=== PATIENT | male | born 1975 | race Caucasian/White ===

== ENCOUNTER → 2020-09-18 10:55 | Outpatient (CLI) | payer OTHER, SELFPAY ==
[2020-09-18 12:56] LABS: Microalbumin:Creatinine Ratio 50.2 mg/g CRE (<30 mg/g CRE)
[2020-09-18 12:58] LABS: Hemoglobin A1c 9.3 % (3.8-5.6)
[2020-09-18 13:16] LABS: ALB/GLOB Ratio 1.1 RATIO (0.9-2.4); AST(SGOT) 41 U/L (15-37); Alanine Aminotransfer ALT/SGPT 81 U/L (16-61); Albumin, Serum 4.1 g/dL (3.2-5.0); Alkaline Phosphatase 92 U/L (45-117); Anion Gap 10 (5-15); BUN 14 mg/dL (7-18); BUN/Creat Ratio 17.9 RATIO (10-20); Calcium,Total 9.9 mg/dL (8.5-10.1); Chloride 97 mmol/L (98-107); Cholesterol 150 mg/dL (200); Creatinine, Serum 0.78 mg/dL (0.70-1.30); EST Glomerular Filtration Rate 115 mL/min (>60); Est Glom Filt Rate - Afr Amer 139 mL/min (>60); Globulin 3.9 g/dL (2.2-4.2); Glucose 247 mg/dL (74-106); High Density Lipoprotein 28 mg/dL; Sodium Level 134 mmol/L (136-145); Triglycerides 720 mg/dL
== END ==
PROVIDERS: Visit Provider Family Medicine
DX: E11.9 Type 2 diabetes mellitus without complications (principal); I10 Essential (primary) hypertension
CPT/HCPCS: 36415; 80053; 80061; 82043; 82570; 83036

== ENCOUNTER → 2020-10-10 16:37 | Outpatient (CLI) | payer OTHER, SELFPAY | PROVIDERS: PCP Family Medicine; Visit Provider Family Medicine | DX: J06.9 Acute upper respiratory infection, unspecified (principal) | CPT/HCPCS: 87635; U0003 ==

== ENCOUNTER → 2021-09-24 18:11 | Outpatient (CLI) | payer OTHER, SELFPAY ==
[2021-09-24 18:14] LABS: Bacteria 0 SEEN /hpf (None Seen); Mucous, Urine 0 SEEN /hpf (<or=2+); Red Blood Cells-Urine 0 SEEN /hpf (0-5); Squamous Epithelial Cells - UA 0 SEEN /hpf (0-5); White Blood Cells 0 SEEN /hpf (0-5)
[2021-09-24 19:30] LABS: Color, Urine Yellow (Yellow); Glucose, Dipstick Normal (Normal); Ketone-Dipstick Negative (Negative); Leukocyte Esterase-Dipstick Negative /ul (Negative); Nitrite-Dipstick Negative (Negative); Occult Blood-Urine Negative /ul (Negative); Protein-Dipstick Negative (Negative); Urine Bilirubin Dipstick Negative (Negative); Urine Clarity Clear (Clear); Urine Urobilinogen Normal (Normal); Urine pH 6.5 (5.0 - 8.0)
== END ==
PROVIDERS: PCP Family Medicine; Referring Provider Family Medicine; Visit Provider Family Medicine
DX: R30.0 Dysuria (principal)
CPT/HCPCS: 81001; 87086; 87088

== ENCOUNTER 2021-11-12 16:48 | Outpatient (CLI) | payer OTHER, SELFPAY ==
--- NOTE | 2021-11-12 16:51 | RAD_ITS ---
STUDY: X-RAY - RIGHT FOOT CLINICAL: Male, 46 years old. Right foot pain TECHNIQUE: 3 view(s) of the foot. COMPARISON: None. FINDINGS: Normal talus, calcaneus, and tarsal bones. Normal visualized subtalar, talonavicular, calcaneocuboid, tarsal and tarsometatarsal articulations. Normal metatarsi. Normal metatarsophalangeal joint of the great toe. Normal tibial and fibular sesamoid bones. Normal interphalangeal joint of the great toe. Normal phalanges of the great toe. Normal second through fifth metatarsophalangeal joints. Normal interphalangeal joints and phalanges of the lesser toes. The soft tissue structures are unremarkable. RAD/Foot min 3 Views IMPRESSION: Normal x-ray examination of the foot. Electronically Signed: Victoriano Tineo MD at 2:50 EST Tel , Service support ,
== END 2021-11-12 23:59 | disposition short-term general hospital (02) ==
PROVIDERS: PCP Family Medicine; Referring Provider Family Medicine; Visit Provider Family Medicine
DX: M77.41 Metatarsalgia, right foot (principal)
CPT/HCPCS: 73630

== ENCOUNTER 2022-03-07 12:21 | Observation (INO) | payer OTHER, SELFPAY ==
[2022-03-07] VITALS (10 sets, daily range): BP systolic 120–148; BP diastolic 71–98; PULSE 79–169; RESP 12–18; TEMP 36.1–37.1; O2SAT 95–98; BMI 36.2; BMI 36.4
--- NOTE | 2022-03-07 13:34 | RAD_ITS ---
STUDY: X-RAY CHEST REASON FOR EXAM: Male, 46 years old. Chest pain TECHNIQUE: Single AP portable view of the chest. COMPARISON: None. FINDINGS: EKG electrodes are seen. The lungs are clear and expanded. There is no demonstrated pleural abnormality. Normal size heart. Normal mediastinum and jose. Normal visualized pulmonary arteries. Normal visualized aortic arch and descending thoracic aorta. Normal visualized thoracic spine. Normal visualized ribs, clavicles, and shoulders. There is no demonstrated abnormality of the visualized soft tissue structures of the upper abdomen. RAD/Chest 1 View (Portable) IMPRESSION: Normal x-ray examination of the chest. Electronically Signed: Omid Hall MD at 15:00 EDT ,
--- NOTE | 2022-03-07 13:54 | EKG12_ITS ---
Test Reason : PALPS Blood Pressure : / mmHG Vent. Rate : 146 BPM Atrial Rate : 141 BPM P-R Int : 000 ms QRS Dur : 084 ms QT Int : 282 ms P-R-T Axes : 000 058 048 degrees QTc Int : 439 ms Atrial fibrillation Abnormal ECG Confirmed by IRIS KIMBLE, JARED ([id number]), online editor BITA GARZA ([id number]) on 03/11/2022 1:32:52 PM Referred By: FRANKLIN/TWYLA Confirmed By:JARED SIMMONS MD
--- NOTE | 2022-03-07 13:59 | EDS_ITS ---
HPI <MIKE Braden - Last Filed: 03/07/22 15:54> History of Present Illness Chief Complaint: Palpitations Narrative Narrative: 46-year-old male with PMH of HTN, DM2 presents with palpitations. About 2 weeks ago he noticed a racing heart and saw his PCP who ordered an outpatient echo/stress. Intermittently since then he has had episodes of heart racing with this morning being the worst starting at 7 AM. It feels like his heart is beating fast and strong. There is no chest pain, shortness of breath, nausea vomiting or diaphoresis. He does note he has been a little more winded with going up stairs but attributed this to seasonal allergies. He has had a mild cough as well. No orthopnea or significant lower extremity edema. He denies cardiopulmonary history. He smokes about 1/2 PPD. PFSH <MIKE Braden - Last Filed: 03/07/22 15:54> PFSH Medical History Diabetes GERD (gastroesophageal reflux disease) Hypertension Sleep apnea Smoker Home Medications amlodipine 10 mg PO DAILY 03/07/22 [History Last Taken Unknown] atorvastatin 40 mg PO DAILY 03/07/22 [History Last Taken Unknown] dapagliflozin [Farxiga] 10 mg PO DAILY 03/07/22 [History Last Taken Unknown] glipizide 10 mg PO DAILY 03/07/22 [History Last Taken Unknown] losartan-hydrochlorothiazide 1 tab PO DAILY 03/07/22 [History Last Taken Unknown] metformin 1,000 mg PO BID 03/07/22 [History Last Taken Unknown] pioglitazone 30 mg PO DAILY 03/07/22 [History Last Taken Unknown] Allergy/AdvReac Type Severity Reaction Status Date / Time No Known Allergies Allergy Verified 03/07/22 12:21 Social History Smoking Status: Current every day smoker tobacco type: cigarettes ROS <MIKE Braden - Last Filed: 03/07/22 15:54> ROS ED ROS Narrative Constitutional: Negative for fever, chills, malaise. Eyes: Negative for visual change. ENT: Negative for sore throat, ear pain, rhinorrhea. CVS: Positive for palpitations. Negative for chest pain, syncope. Respiratory: Positive for dyspnea on exertion. Negative for shortness of breath, cough, orthopnea. GI: Negative for abdominal pain, nausea, vomiting, diarrhea, constipation, melena, hematochezia. : Negative for dysuria, hematuria or frequency. Neuro: Negative for headache, motor/sensory dysfunction. Skin: Negative for rash, abscess, or wound. Musc: Negative for joint pain, swelling, trauma. Heme: Negative for easy bruising, bleeding, lymphadenopathy. EXAM <MIKE Braden - Last Filed: 03/07/22 15:54> Physical Exam Narrative Exam Narrative: CONST: Patient sitting in no acute distress. EYES: Normal inspection. ENT: Normal inspection, moist mucous membranes. NECK: Normal inspection. RESP: No respiratory distress, slight expiratory wheeze. CVS: Tachycardic irregularly irregular rhythm, no murmur, no gallop. ABD: Soft and nontender, no guarding or rebound. Back: Normal inspection. SKIN: Color normal, no rash, warm, dry, intact. EXTREMITIES: Normal appearance, no pedal edema. No calf tenderness. NEURO: Oriented x4. PSYCH: Normal affect. Const Vital Signs: 03/07/22 12:22 03/07/22 13:31 03/07/22 13:43 Temperature 97.8 F Temperature Source Temporal Pulse Rate 82 169 H Respiratory Rate 16 Respiratory Effort Normal Non-Labored Normal Non-Labored Respiratory Pattern Normal Blood Pressure 148/89 H 129/88 H Blood Pressure Mean 108 101 Pulse Ox 98 Oxygen Delivery Method Room Air 03/07/22 14:55 03/07/22 15:23 Temperature Temperature Source Pulse Rate 104 H 130 H Respiratory Rate 13 13 Respiratory Effort Respiratory Pattern Blood Pressure 133/75 H 129/78 H Blood Pressure Mean 94 95 Pulse Ox 95 Oxygen Delivery Method Room Air <Dr. Justus Youssef DO - Last Filed: 03/07/22 15:44> Physical Exam Const Vital Signs: 03/07/22 12:22 03/07/22 13:31 03/07/22 13:43 Temperature 97.8 F Temperature Source Temporal Pulse Rate 82 169 H Respiratory Rate 16 Respiratory Effort Normal Non-Labored Normal Non-Labored Respiratory Pattern Normal Blood Pressure 148/89 H 129/88 H Blood Pressure Mean 108 101 Pulse Ox 98 Oxygen Delivery Method Room Air 03/07/22 14:55 03/07/22 15:23 Temperature Temperature Source Pulse Rate 104 H 130 H Respiratory Rate 13 13 Respiratory Effort Respiratory Pattern Blood Pressure 133/75 H 129/78 H Blood Pressure Mean 94 95 Pulse Ox 95 Oxygen Delivery Method Room Air [facility] <MIKE Braden - Last Filed: 03/07/22 15:54> [facility] Narrative Medical decision making narrative: Patient has had intermittent palpitations and presents in A. fib RVR in the 160s. BP 130s/80s. No hypoxia. EKG confirms new onset A. fib with no acute ischemia. Troponin is 13. Basic labs are unremarkable and TSH and magnesium are within normal limits. Patient was given a Cardizem bolus of 10 mg and a second bolus at 20 mg with improvement in heart rate from 160s to 130s. I consulted cardiology and Dr. Trevino who recommended starting a Cardizem drip at 5 mg an hour. Case was discussed with the hospitalist who was agreeable with this plan. Diagnoses 1. Palpitations 2. A. fib RVR Lab Data Labs: Laboratory Results - last 24 hr 03/07/22 03/07/22 03/07/22 13:35 13:35 13:35 WBC 9.5 RBC 5.29 Hgb 15.6 Hct 44.5 MCV 84.1 MCH 29.5 MCHC 35.1 RDW Std Deviation 36.0 RDW Coeff of Lala 11.9 Plt Count 368 MPV 9.4 Immature Gran % (Auto) 0.400 Neut % (Auto) 65.2 Lymph % (Auto) 22.5 [place] % (Auto) 9.7 Eos % (Auto) 1.9 Baso % (Auto) 0.3 Absolute Neuts (auto) 6.2 Absolute Lymphs (auto) 2.14 Nucleated RBC % 0 Sodium 136 Potassium 4.0 Chloride 103 Carbon Dioxide 25.0 Anion Gap 8 BUN 12 Creatinine 0.71 Estim Creat Clear Calc 139.94 Est GFR (MDRD) Af Amer 153 Est GFR (MDRD) Non-Af 127 BUN/Creatinine Ratio 16.9 Glucose 160 H Calcium 9.8 Magnesium Troponin I High Sens 13 B-Natriuretic Peptide 124.8 H TSH 03/07/22 13:35 WBC RBC Hgb Hct MCV MCH MCHC RDW Std Deviation RDW Coeff of Lala Plt Count MPV Immature Gran % (Auto) Neut % (Auto) Lymph % (Auto) [place] % (Auto) Eos % (Auto) Baso % (Auto) Absolute Neuts (auto) Absolute Lymphs (auto) Nucleated RBC % Sodium Potassium Chloride Carbon Dioxide Anion Gap BUN Creatinine Estim Creat Clear Calc Est GFR (MDRD) Af Amer Est GFR (MDRD) Non-Af BUN/Creatinine Ratio Glucose Calcium Magnesium 1.6 Troponin I High Sens B-Natriuretic Peptide TSH 2.05 Radiography Chest X-Ray - ED: 1 View, Read by ED Physician, Read by Radiologist, Unchanged, Heart, Lungs, Mediastinum, Bony Structures and No Acute Disease Diagnostic Testing: Clinical Impression(s) from Imaging Studies Chest X-Ray 03/07/22 13:34 IMPRESSION: Normal x-ray examination of the chest. Electronically Signed: Omid Hall MD at 15:00 EDT , ED attending interpretation of 1 view chest shows normal heart size, no acute infiltrate edema or effusion EKG Initial EKG: Attestation: I personally reviewed and interpreted this EKG as follows: Interpretation: No Acute Injury Pattern and Atrial Fibrillation Comments: A. fib RVR 146 bpm, no acute ischemia <Dr. Justus Youssef DO - Last Filed: 03/07/22 15:44> MDM MDM Narrative Medical decision making narrative: I performed a history and physical examination of the patient and discussed management plan with the physician congressional assistant. I reviewed the physician congressional assistant's note and agree with the documented findings and plan of care. 46-year-old male has been experiencing palpitations. He saw his primary care physician and then again in follow-up today. He was noted to be in A. fib in the office today. He has not had any syncope or evidence of heart failure. He does note that he is concerned he may have sleep apnea. Plan is admission into the hospital. Case was discussed with cardiology. Justus Youssef DO, MS Lab Data Labs: Laboratory Results - last 24 hr 03/07/22 03/07/22 03/07/22 13:35 13:35 13:35 WBC 9.5 RBC 5.29 Hgb 15.6 Hct 44.5 MCV 84.1 MCH 29.5 MCHC 35.1 RDW Std Deviation 36.0 RDW Coeff of Lala 11.9 Plt Count 368 MPV 9.4 Immature Gran % (Auto) 0.400 Neut % (Auto) 65.2 Lymph % (Auto) 22.5 [place] % (Auto) 9.7 Eos % (Auto) 1.9 Baso % (Auto) 0.3 Absolute Neuts (auto) 6.2 Absolute Lymphs (auto) 2.14 Nucleated RBC % 0 Sodium 136 Potassium 4.0 Chloride 103 Carbon Dioxide 25.0 Anion Gap 8 BUN 12 Creatinine 0.71 Estim Creat Clear Calc 139.94 Est GFR (MDRD) Af Amer 153 Est GFR (MDRD) Non-Af 127 BUN/Creatinine Ratio 16.9 Glucose 160 H Calcium 9.8 Magnesium Troponin I High Sens 13 B-Natriuretic Peptide 124.8 H TSH 03/07/22 13:35 WBC RBC Hgb Hct MCV MCH MCHC RDW Std Deviation RDW Coeff of Lala Plt Count MPV Immature Gran % (Auto) Neut % (Auto) Lymph % (Auto) [place] % (Auto) Eos % (Auto) Baso % (Auto) Absolute Neuts (auto) Absolute Lymphs (auto) Nucleated RBC % Sodium Potassium Chloride Carbon Dioxide Anion Gap BUN Creatinine Estim Creat Clear Calc Est GFR (MDRD) Af Amer Est GFR (MDRD) Non-Af BUN/Creatinine Ratio Glucose Calcium Magnesium 1.6 Troponin I High Sens B-Natriuretic Peptide TSH 2.05 Radiography Diagnostic Testing: Clinical Impression(s) from Imaging Studies Chest X-Ray 03/07/22 13:34 IMPRESSION: Normal x-ray examination of the chest. Electronically Signed: Omid Hall MD at 15:00 EDT , Discharge Plan Dx/Rx/DC Orders Clinical Impression: Atrial fibrillation, new onset, Diabetes Disposition Disposition: Acute Care Hospital [facility]
[2022-03-07 14:03] LABS: Absolute Lymphocyte Count 2.14 X10^3/uL (0.83-4.51); Absolute Neutrophil Count 6.2 X10^3/uL (2.0-7.7); Basophil# 0.03 X10^3/uL; Basophil% 0.3 % (0-1); Eosinophil# 0.18 X10^3/uL; Eosinophils% 1.9 % (0-5); Hematocrit 44.5 % (40-54); Hemoglobin 15.6 g/dL (13.0-16.5); Lymphocyte # 2.14 X10^3/ul (0.83-4.51); Lymphocyte % 22.5 % (19-41); Mean Corp Hgb Conc 35.1 g/dL (32-36); Mean Corpuscular Hgb 29.5 pg (27.0-32.0); Mean Corpuscular Volume 84.1 fL (80-94); Mean Platelet Vol. 9.4 fl (6.2-12.0); Monocyte# 0.92 X10^3/uL; Monocyte% 9.7 % (0-10); NRBC Flagged by Analyzer 0 % (0-5); Neutrophil # 6.21 X10^3/uL (2.7-7.7); Neutrophil % 65.2 % (47-70); Platelet Count 368 K/mm3 (150-450); RBC Distribution Width CV 11.9 % (11.6-14.6); Red Blood Count 5.29 M/mm3 (4.6-6.2); White Blood Count 9.5 K/mm3 (4.4-11.0)
[2022-03-07] MEDS: dilTIAZem 25 MG/5 ML Vial 10 MG IV BOLUS (14:03)
[2022-03-07] MEDS: Aspirin 81 MG TAB.CHEW 324 MG PO (14:03)
[2022-03-07 14:25] LABS: BNP,B-Type NATRIURETIC PEPTIDE 124.8 pg/mL (0-100)
[2022-03-07 14:29] LABS: Anion Gap 8 (5-15); BUN 12 mg/dL (7-18); BUN/Creat Ratio 16.9 RATIO (10-20); Calcium,Total 9.8 mg/dL (8.5-10.1); Chloride 103 mmol/L (98-107); Creatinine, Serum 0.71 mg/dL (0.70-1.30); EST Glomerular Filtration Rate 127 mL/min (>60); Est Glom Filt Rate - Afr Amer 153 mL/min (>60); Estimated Creatinine Clearance 139.94 ml/min; Glucose 160 mg/dL (74-106); Sodium Level 136 mmol/L (136-145); Troponin-I HS (w/2H Reflex) 13 pg/mL (3.0-78.0)
[2022-03-07] MEDS: dilTIAZem 25 MG/5 ML Vial 20 MG IV BOLUS (14:36)
[2022-03-07 14:43] LABS: Magnesium 1.6 mg/dL (1.6-2.6); Thyroid Stim Hormone (TSH) 2.05 uIU/mL (0.358-3.74)
--- NOTE | 2022-03-07 16:11 | HP.PCM.HOS_ITS ---
Documented by User: Frances Hope NP, FOOD MANAGER-C 03/07/22 16:27 HPI - General HPI Narrative RENY BEVERLY, is a 46 M who presents to the emergency room due to palpitations. He states this has been intermittent for the past week and a half however today was more persistent. He presented to his primary care provider who completed an EKG and patient was noted to have atrial fibrillation with RVR. He denies short ness of breath, chest pain. Denies other associated symptoms or complaints. Denies history of known A. fib. Denies history of known heart disease. Upon examination in the emergency room, patient converted to sinus rhythm. He states he was scheduled for outpatient sleep study for suspected IRINA as well as outpatient stress test due to his symptoms of palpitations and family history of heart disease. He reports a past medical history of hypertension, hyperlipidemia, type 2 diabetes mellitus, tobacco dependence, obesity. Patient states he has a history of heavy alcohol use however over the past eight months, has used very little alcohol. PFSH Medical History Diabetes GERD (gastroesophageal reflux disease) Hypertension Irregular heart beat Sleep apnea Smoker Home Medications amlodipine 10 mg PO DAILY 03/07/22 [History Last Taken 03/07/22] atorvastatin 40 mg PO DAILY 03/07/22 [History Last Taken 03/07/22] glipizide 10 mg PO DAILY 03/07/22 [History Last Taken 03/07/22] losartan-hydrochlorothiazide 1 tab PO DAILY 03/07/22 [History Last Taken 03/07/22] metformin 1,000 mg PO BID 03/07/22 [History Last Taken 03/07/22] pioglitazone 30 mg PO DAILY 03/07/22 [History Last Taken 03/07/22] Allergy/AdvReac Type Severity Reaction Status Date / Time No Known Allergies Allergy Verified 03/07/22 12:21 Family History Father CAD (coronary artery disease) Mother Arthritis Surgical History Congenital hypertrophic pyloric stenosis Social History household members: family Smoking Status: Current every day smoker tobacco type: cigarettes alcohol intake: current alcohol intake frequency: a few times a month details: previous heavy alcohol use substance use type: does not use ROS Constitutional Constitutional: Denies change in weight, chills, fatigue, fever(s) or weakness Cardiovascular Cardiovascular: Reports palpitations; Denies chest pain, edema, lightheadedness or syncope Respiratory/Chest Respiratory/Chest: Denies cough, dyspnea, productive cough, shortness of breath at rest, shortness of breath with exertion or wheezing Gastrointestinal Gastrointestinal: Denies abdominal pain, constipation, diarrhea, nausea or vomiting Genitourinary Genitourinary: Denies burning urination, difficulty urinating, dysuria, hematuria, urinary frequency, urinary incontinence or urinary urgency Musculoskeletal Musculoskeletal: Denies back pain, joint pain or muscle weakness Integumentary Integumentary: Denies erythema, lesions, rash or wounds Neurologic Neurologic: Denies abnormal speech, confusion, dizziness, focal weakness, numbness, paresthesias, seizure-like activity or syncope Psychiatric Psychiatric: Denies anxiety or depression Hematologic/Lymphatic Hematologic/Lymphatic: Denies anemia, easy bleeding or easy bruising Allergic/Immunologic Allergic/Immunologic: Denies hives or asthma Vital Signs Vital Signs Vital Signs: 03/07/22 12:22 03/07/22 13:31 03/07/22 13:43 Temperature 97.8 F Temperature Source Temporal Pulse Rate 82 169 H Respiratory Rate 16 Respiratory Effort Normal Non-Labored Normal Non-Labored Respiratory Pattern Normal Blood Pressure 148/89 H 129/88 H Blood Pressure Mean 108 101 Pulse Ox 98 Oxygen Delivery Method Room Air 03/07/22 14:55 03/07/22 15:23 03/07/22 15:54 Temperature 97.9 F Temperature Source Temporal Pulse Rate 104 H 130 H 128 H Respiratory Rate 13 13 12 Respiratory Effort Respiratory Pattern Blood Pressure 133/75 H 129/78 H 136/98 H Blood Pressure Mean 94 95 110 Pulse Ox 95 97 Oxygen Delivery Method Room Air Room Air Weight Weight: 260 lb Body Mass Index (BMI) 36.2 Physical Exam Const alert, oriented x3 and no apparent distress Orientation / Consciousness: awake, oriented to person, oriented to place and oriented to time Nutritional Appearance: obese HEENT normocephalic and moist oral mucous membranes Eyes PERRL, EOMs intact bilaterally and conjunctivae normal Neck no lymphadenopathy Resp clear to auscultation bilaterally Auscultation: diminished lung sounds Cardio regular rate, regular rhythm and no murmurs Cardio Narrative: Converted to NSR Peripheral Pulses: pulses 2+ throughout GI normal to inspection, nondistended, normoactive bowel sounds, non-tender and non-distended Extremity normal to inspection Skin no rashes or lesions noted Lesions: no lesions Rashes: no rashes Trauma: no lacerations or abrasions Neuro CN's II-XII intact bilaterally, no focal motor deficits, no sensory deficits noted and deep tendon reflexes 2+ bilaterally Psych mental status grossly normal and affect normal Results Lab / Micro Data Result Diagrams: 03/07/22 13:35 03/07/22 13:35 Labs: Laboratory Results - last 24 hr 03/07/22 13:35: WBC 9.5, RBC 5.29, Hgb 15.6, Hct 44.5, MCV 84.1, MCH 29.5, MCHC 35.1, RDW Std Deviation 36.0, RDW Coeff of Lala 11.9, Plt Count 368, MPV 9.4, Immature Gran % (Auto) 0.400, Neut % (Auto) 65.2, Lymph % (Auto) 22.5, [place] % (Auto) 9.7, Eos % (Auto) 1.9, Baso % (Auto) 0.3, Absolute Neuts (auto) 6.2, Absolute Lymphs (auto) 2.14, Nucleated RBC % 0 03/07/22 13:35: Sodium 136, Potassium 4.0, Chloride 103, Carbon Dioxide 25.0, Anion Gap 8, BUN 12, Creatinine 0.71, Estim Creat Clear Calc 139.94, Est GFR (MDRD) Af Amer 153, Est GFR (MDRD) Non-Af 127, BUN/Creatinine Ratio 16.9, Glucose 160 H, Calcium 9.8, Troponin I High Sens 13 03/07/22 13:35: B-Natriuretic Peptide 124.8 H 03/07/22 13:35: Magnesium 1.6, TSH 2.05 Radiology Impression Chest X-Ray 03/07/22 13:34 IMPRESSION: Normal x-ray examination of the chest. Electronically Signed: Omid Hall MD at 15:00 EDT , Assessment & Plan Assessment/Plan (1) Atrial fibrillation, new onset: PLAN: 1. New onset atrial fibrillation-converted to NSR following IV cardizem bolus. Cardiology consulted. Trend enzymes. TSH, mag normal. Obtain echo. Begin oral cardizem and eliquis. 2. Hypertension- stable, continue 3. Hyperlipidemia- continue statin. Fasting lipid profile in A.M. 4. Type 2 diabetes mellitus-on metformin, glipizide, pioglitazone, farxiga. Accu-Checks with sliding scale insulin. 5. Probable IRINA-to undergo outpatient PSG. 6. Obesity-diet and lifestyle modifications encouraged. 7. Tobacco dependence-encouraged cessation. 8. Former alcohol use-reports significant reduction the past 8 months. Encouraged continued reduction/cessation. DVT prophylaxis-Eliquis This patient was seen by SUDARSHAN Rice under the supervision of Dr. Flores. Time spent examining patient, reviewing data and subsequent management of care: 17 minutes Documented by User: Dr. Beau Flores MD 03/07/22 16:44 HPI - General General Date of Admission: 03/07/22 Date of Service: 03/07/22 Chief Complaint: Palpitation since morning today. HPI Narrative There is 46-year-old question gentleman with history of diabetes mellitus and hypertension sent to ED by PCP for heart racing/palpitations this morning today. He had similar episode of palpitation about 1 and half weeks ago and at that time he went to PCP office and had an EKG which was abnormal, unclear whether it was A. fib but was spontaneously resolved. This time it is more prolonged, symptomatic and found to be A. fib with RVR with EKG in PCP office therefore sent to ER. Patient is morbidly obese and has history of diabetes mellitus hypertension and possible sleep apnea as he snores but not diagnosed yet. He denies chest discomfort/pressure/tightness but has chronic shortness of breath on exertion which he attributes to his obesity. In ED, twelve-lead EKG was done shows A. fib with RVR at 150 beats minute. Patient blood pressure was little elevated but later on became normal. No tachypnea or hypoxia. Patient had total of 30 mg IV Cardizem bolus and heart rate slowed down to 110 but when I saw the patient, he is converted to sinus rhythm and heart rate decreased to 96 per minute. Chest x-ray reported normal. Labs reviewed and discussed in assessment plan [facility] Medical History Diabetes GERD (gastroesophageal reflux disease) Hypertension Irregular heart beat Sleep apnea Smoker Home Medications amlodipine 10 mg PO DAILY 03/07/22 [History Last Taken 03/07/22] atorvastatin 40 mg PO DAILY 03/07/22 [History Last Taken 03/07/22] glipizide 10 mg PO DAILY 03/07/22 [History Last Taken 03/07/22] losartan-hydrochlorothiazide 1 tab PO DAILY 03/07/22 [History Last Taken ] metformin 1,000 mg PO BID 03/07/22 [History Last Taken 03/07/22] pioglitazone 30 mg PO DAILY 03/07/22 [History Last Taken 03/07/22] Allergy/AdvReac Type Severity Reaction Status Date / Time No Known Allergies Allergy Verified 03/07/22 12:21 Family History Father CAD (coronary artery disease) Mother Arthritis Surgical History Congenital hypertrophic pyloric stenosis Social History household members: family Smoking Status: Current every day smoker tobacco type: cigarettes alcohol intake: current alcohol intake frequency: a few times a month details: previous heavy alcohol use substance use type: does not use ROS ROS Narrative 14 ROS reviewed and agree as documented by Frances. Morbid obesity. Chronic shortness of breath on exertion. Rest 14 ROS negative except as mentioned in HPI. Physical Exam Narrative General: Alert, Oriented x3, Cooperative, morbid obesity BMI, grade 3 36.3 kg/m?. HEENT: Atraumatic, PERRLA, EOMI, Normocephalic Oral: No Gingival or Mucosal Lesions/ Ulcerations Neck: Supple, No JVD, Negative Carotid Bruits Lungs: Air entry diminished in bilateral lung bases. No crepitation/rhonchi Cardiovascular: Sinus rhythm at 96%. Normal S1, Normal S2, No murmurs Abdomen: Bowel Sounds Present, Soft, Non Tender, Non-Distended : No renal angle tenderness. No suprapubic tenderness. Extremities: No edema, Capillary Refill Less than 3 Seconds Skin: No rashes, No breakdown Musculoskeletal: No Tenderness to Palpation of Joints or Extremities Neurological: Cranial nerves II-XII grossly intact, DTR 2+/4 and Symmetrical, Neuro grossly intact Psych/Mental Status: Normal Affect, Appropriate Results Lab / Micro Data Result Diagrams: 03/07/22 13:35 03/07/22 13:35 Assessment & Plan Assessment/Plan (1) Atrial fibrillation, new onset: PLAN: This patient was seen in conjunction with Frances STOVALL. I have independently interviewed and examined the patient and reviewed pertinent history, examination findings, laboratory and plan of management. I have reviewed the note and agree with the documented findings with the few additional points. In brief, patient is 46-year-old gentleman with history of diabetes mellitus ty pe 2 and hypertension came with A. fib with RVR. 1. A. fib with RVR: Converted to normal sinus rhythm with Cardizem IV bolus given in ED. Discussed with the cyber systems engineer Dr. Trevino and consulted. Started on Cardizem oral 60 mg every 6 hourly with holding parameters. Change to Cardizem CD from tomorrow AM. Started on Eliquis 5 mg p.o. twice daily. 2D echo tomorrow AM. Serial troponin enzymes, TSH, lipid profile tomorrow a.m. 2. Diabetes mellitus type 2: Hold metformin otherwise rest of oral hypoglycemic glipizide, pioglitazone Pharixia continued. Accu-Chek before meals and at bedtime coverage with sliding scale. 3. Hypertension: Blood pressure is in acceptable limit. Monitor BP and adjust antihypertensive medications as above 4. Other comorbidities include dyslipidemia, morbid obesity, possible IRINA, chronic cigarette smoking/nicotine dependence: Weight loss counseling done. Advised quitting cigarette smoking. Advised healthy lifestyle. Patient is former alcohol use as mentioned above. Home medication reconciliation done. I have discussed my assessment with Frances STOVALL and orders have been reviewed. Charges/Coding Visit Charges OBSV E&M: 23573 Initial observation care L3
--- NOTE | 2022-03-07 16:30 | EKG12_ITS ---
Test Reason : RHYTHM CHANGE Blood Pressure : / mmHG Vent. Rate : 086 BPM Atrial Rate : 086 BPM P-R Int : 162 ms QRS Dur : 102 ms QT Int : 352 ms P-R-T Axes : 049 040 043 degrees QTc Int : 421 ms Normal sinus rhythm Normal ECG Confirmed by IRIS KIMBLE, JARED ([id number]), assignment editor BITA GARZA ([id number]) on 03/11/2022 1:34:02 PM Referred By: Confirmed By:JARED SIMMONS MD
[2022-03-07 16:37] LABS: Phosphorus 3.3 mg/dL (2.5-4.9)
[2022-03-07] MEDS: APIXABAN 5 MG TABLET PO (17:08)
[2022-03-07] MEDS: Magnesium Chloride 64 MG Delay Rel.Tablet 128 MG PO ×2 (17:09→22:26)
[2022-03-07] MEDS: dilTIAZem 60 MG Tablet PO (17:15)
[2022-03-07 17:35] LABS: Bedside Glucose 147 mg/dL (74-106)
[2022-03-07 18:34] LABS: Troponin-I HS 14 pg/mL (3.0-78.0)
[2022-03-07 20:54] LABS: Troponin-I HS 12 pg/mL (3.0-78.0)
[2022-03-07] MEDS: Atorvastatin Calcium 40 MG Tablet PO (22:25)
[2022-03-08] MEDS: dilTIAZem 60 MG Tablet PO ×3 (00:10→12:05)
[2022-03-08 00:45] LABS: Bedside Glucose 142 mg/dL (74-106)
[2022-03-08 04:00] VITALS: PULSE 78
[2022-03-08] MEDS: APIXABAN 5 MG TABLET PO (04:08)
[2022-03-08 04:12] VITALS: BP 120/85; PULSE 71; RESP 14; TEMP 36.3; O2SAT 98
--- NOTE | 2022-03-08 05:55 | ECHOCS_ITS ---
Reason For Study: AFIV W/RVR Procedure This was a 2D Doppler, Color Flow transthoracic echocardiogram. The study was technically difficult. Exam performed portable in patient room. Left Ventricle Normal LV size. Left ventricular systolic function is normal. The estimated ejection fraction is 60 %. No regional wall motion abnormalities noted. Right Ventricle Normal RV size. Normal systolic function. Atria Normal left atrium. Normal right atrium. Mitral Valve Mitral valve not well visualized. Tricuspid Valve The tricuspid valve is not well visualized. Mild tricuspid valve insufficiency. Aortic Valve The aortic valve is not well visualized. Pulmonic Valve The pulmonic valve is not well visualized. Great Vessels Normal aortic root. The pulmonary artery is normal size. Normal inferior vena cava. Pericardium/Pleural No pericardial effusion. Medication Diluted definity 3ml given slow IV push to enhance endocardial definition. MMode/2D Measurements & Calculations LVIDd: 4.5 cm IVSd: 1.1 cm Ao root diam: 3.2 cm LVIDs: 2.6 cm LVPWd: 1.2 cm RVDd: 4.7 cm FS: 42.6 % LVAd ap4: 38.2 cm2 LVAd ap2: 27.7 cm2 SV(MOD-sp4): 89.5 ml LVLd ap4: 9.4 cm LVLd ap2: 8.1 cm EDV(MOD-sp4): 134.8 ml EDV(MOD-sp2): 76.9 ml EDV(sp4-el): 132.5 ml EDV(sp2-el): 80.3 ml LVAs ap4: 19.4 cm2 LVAs ap2: 13.5 cm2 LVLs ap4: 7.1 cm LVLs ap2: 7.1 cm ESV(MOD-sp4): 45.3 ml ESV(MOD-sp2): 22.0 ml ESV(sp4-el): 45.2 ml ESV(sp2-el): 22.0 ml EF(MOD-sp4): 66.4 % EF(MOD-sp2): 71.3 % EF(sp4-el): 65.9 % SV(MOD-sp2): 54.9 ml SV(sp4-el): 87.3 ml LA dimension(2D): 3.6 cm RA A4 area: 15.3 cm2 Doppler Measurements & Calculations MV E max boubacar: 92.3 cm/sec Lat Peak E' Boubacar: 12.3 cm/sec Med Peak E' Boubacar: 8.8 cm/sec MV A max boubacar: 81.9 cm/sec E/E' lat: 7.5 E/E' med: 10.5 MV E/A: 1.1 Ao V2 max: 99.0 cm/sec LV V1 max: 88.8 cm/sec TR max boubacar: 196.8 cm/sec Ao max P.9 mmHg LV V1 max P.2 mmHg TR max P.5 mmHg ECHO/Echo Complete W/ Contrast Interpretation Summary Normal LV size. Left ventricular systolic function is normal. The estimated ejection fraction is 60 %. Mild tricuspid valve insufficiency. Contrast injection was performed. Ordering Physician: Beau Flores Referring Physician: Josue Mueller MD Performed By: Jaymie Lanza RCS
[2022-03-08] MEDS: Insulin Lispro 100 UNIT/ML INSULN.PEN SC ×2 (06:33→12:00)
[2022-03-08 06:51] LABS: Bedside Glucose 203 mg/dL (74-106)
[2022-03-08 07:37] LABS: Anion Gap 8 (5-15); BUN 12 mg/dL (7-18); BUN/Creat Ratio 15.8 RATIO (10-20); Chloride 99 mmol/L (98-107); Cholesterol 149 mg/dL (200); Creatinine, Serum 0.76 mg/dL (0.70-1.30); EST Glomerular Filtration Rate 118 mL/min (>60); Est Glom Filt Rate - Afr Amer 142 mL/min (>60); Estimated Creatinine Clearance 130.73 ml/min; Glucose 181 mg/dL (74-106); High Density Lipoprotein 30 mg/dL; Potassium 3.7 mmol/L (3.5-5.1); Sodium Level 136 mmol/L (136-145); Thyroid Stim Hormone (TSH) 2.55 uIU/mL (0.358-3.74); Triglycerides 631 mg/dL
[2022-03-08 08:03] VITALS: PULSE 67
[2022-03-08] MEDS: Magnesium Chloride 64 MG Delay Rel.Tablet 128 MG PO (08:52)
[2022-03-08] MEDS: Losartan Potassium 100 MG Tablet PO (08:53)
[2022-03-08] MEDS: Pioglitazone Hydrochloride 30 MG Tablet PO (08:53)
[2022-03-08] MEDS: glipiZIDE XL 5 MG Tablet 10 MG PO (08:53)
[2022-03-08] MEDS: hydroCHLOROthiazide 12.5mg 12.5 MG PO (08:53)
--- NOTE | 2022-03-08 10:00 | DCINST_ITS ---
Discharge Instructions Diet Discharge Diet: Low fat / Low cholesterol Activity Discharge Activity: Return to Normal Activity Dressing / Incision Call your doctor if you observe: Shortness of breath, Dizziness and Chest pain Follow Up Care Test Results: Test results from this visit will be discussed in further detail at your follow-up appointment, if applicable. Discharge Plan Admission Admit Date/Time: 03/07/22 16:30 Primary Reason for Your Visit: New onset a.fib Attending Provider: Jaspal Fish Primary Care Provider: Josue Mueller Consulting Providers: Cristi Trevino ; Beau Flores Discharge Orders/Prescriptions Prescriptions: New Eliquis 5 mg Tablet 5 mg PO Q12H 30 Days Qty: 60 RF: 0 diltiazem HCl [Cardizem CD] 240 mg capsule,extended release 24hr 240 mg PO DAILY Qty: 30 RF: 0 Continued atorvastatin 40 mg Tablet 40 mg PO DAILY RF: 0 glipizide 10 mg Tablet Extended Release 24hr 10 mg PO DAILY RF: 0 amlodipine 10 mg Tablet 10 mg PO DAILY RF: 0 metformin 1,000 mg Tablet 1,000 mg PO BID RF: 0 pioglitazone 30 mg Tablet 30 mg PO DAILY RF: 0 losartan-hydrochlorothiazide 100-12.5 mg Tablet 1 tab PO DAILY RF: 0 Referrals / Follow Up: Josue Mueller MD [Primary Care Provider] - In 1 Week Carmella Crow PA [PHYSICIAN [employer]ER] - Within 2 Weeks (Follow up with cardiology PA/HEALTH SANITARIAN) Disposition Disposition (needs filled in before D/C Order can be placed): Home, Self Care
[2022-03-08 10:11] VITALS: BP 123/84; PULSE 75; RESP 16; TEMP 36.3; O2SAT 99
--- NOTE | 2022-03-08 11:13 | PCM.DC.SUM ---
Documented by User: Frances Hope NP, [employer] 03/08/22 11:18 Providers Date of Admission: 03/07/22 Date of Discharge: 03/08/22 Primary Care Physician: Dr. Josue Mueller MD Consultations 03/07/22 16:49 Consult: Cardiology Routine Consulting Provider: Cristi Trevino Reason for Consult: New onset A fib with RVR EMERGENT Consult: No MD Notified: Yes Date Notified: 03/07/22 Time Notified: 16:30 Method of Notification: Verbal Reason For Visit: AFIB, RVR Diagnosis Discharge Diagnosis (1) Atrial fibrillation, new onset: Status: Acute Code(s): I48.91 - Unspecified atrial fibrillation Medications at Discharge Home Medications amlodipine 10 mg PO DAILY 03/07/22 atorvastatin 40 mg PO DAILY 03/07/22 glipizide 10 mg PO DAILY 03/07/22 losartan-hydrochlorothiazide 1 tab PO DAILY 03/07/22 metformin 1,000 mg PO BID 03/07/22 pioglitazone 30 mg PO DAILY 03/07/22 apixaban [Eliquis] 5 mg PO Q12H 30 Days #60 tab 03/08/22 diltiazem HCl [Cardizem CD] 240 mg PO DAILY #30 cap 03/08/22 Hospital Course Operations None Procedures 2-D Echocardiogram Summary of Care Provided Hospital Course: Patient is a 46-year-old male admitted 03/07/2022 due to palpitations. 1. New onset atrial fibrillation with RVR-converted to NSR following IV cardizem bolus in ED. Cardiology consulted. Enzymes negative. TSH, mag normal. Eliquis 5 mg twice daily and Cardizem CD 240 mg daily at discharge. Echocardiogram completed, report pending and will be reviewed prior to discharge. Follow-up with PCP and cardiology at discharge. 2. Hypertension- stable, continue losartan/HCTZ, amlodipine. 3. Hyperlipidemia- continue statin. 4. Type 2 diabetes mellitus-on metformin, glipizide, pioglitazone, farxiga. 5. Probable IRINA-to undergo outpatient PSG as ordered by PCP. 6. Obesity-diet and lifestyle modifications encouraged. 7. Tobacco dependence-encouraged cessation. 8. Former alcohol use-reports significant reduction the past 8 months. Encouraged continued reduction/cessation. Patient seen and examined prior to discharge. Physical assessment as noted below. Patient is stable for discharge with follow up recommendations as noted above. This patient was seen by SUDARSHAN Rice under the supervision of Dr. Fish. Time spent examining patient, reviewing data and subsequent management of care: 18 Minutes Physical Exam Const alert and oriented x3 Orientation / Consciousness: awake, oriented to person, oriented to place and oriented to time Nutritional Appearance: obese HEENT normocephalic and moist oral mucous membranes Eyes PERRL, EOMs intact bilaterally and conjunctivae normal Neck no lymphadenopathy Resp normal respiratory effort and clear to auscultation bilaterally Cardio regular rate, regular rhythm and no murmurs Peripheral Pulses: pulses 2+ throughout GI normal to inspection, nondistended, normoactive bowel sounds, non-tender and non-distended Extremity normal to inspection Skin no rashes or lesions noted Lesions: no lesions Rashes: no rashes Trauma: no lacerations or abrasions Neuro CN's II-XII intact bilaterally, no focal motor deficits, no sensory deficits noted and deep tendon reflexes 2+ bilaterally Psych mental status grossly normal and affect normal Weight / BMI Weight Weight: 261 lb 4.8 oz Body Mass Index (BMI) 36.4 ABG / Lab / Microbiology Data Result Diagrams: 03/07/22 13:35 03/08/22 06:30 Laboratory: Laboratory Results - last 24 hr 03/07/22 13:35: WBC 9.5, RBC 5.29, Hgb 15.6, Hct 44.5, MCV 84.1, MCH 29.5, MCHC 35.1, RDW Std Deviation 36.0, RDW Coeff of Lala 11.9, Plt Count 368, MPV 9.4, Immature Gran % (Auto) 0.400, Neut % (Auto) 65.2, Lymph % (Auto) 22.5, [place] % (Auto) 9.7, Eos % (Auto) 1.9, Baso % (Auto) 0.3, Absolute Neuts (auto) 6.2, Absolute Lymphs (auto) 2.14, Nucleated RBC % 0 03/07/22 13:35: Sodium 136, Potassium 4.0, Chloride 103, Carbon Dioxide 25.0, Anion Gap 8, BUN 12, Creatinine 0.71, Estim Creat Clear Calc 139.94, Est GFR (MDRD) Af Amer 153, Est GFR (MDRD) Non-Af 127, BUN/Creatinine Ratio 16.9, Glucose 160 H, Calcium 9.8, Troponin I High Sens 13 03/07/22 13:35: B-Natriuretic Peptide 124.8 H 03/07/22 13:35: Magnesium 1.6, TSH 2.05 03/07/22 13:35: Phosphorus 3.3 03/07/22 17:25: POC Glucose 147 H 03/07/22 17:45: Troponin I High Sens 14 03/07/22 20:29: Troponin I High Sens 12 03/07/22 22:18: POC Glucose 142 H 03/08/22 06:30: Sodium 136, Potassium 3.7, Chloride 99, Carbon Dioxide 29.0, Anion Gap 8, BUN 12, Creatinine 0.76, Estim Creat Clear Calc 130.73, Est GFR (MDRD) Af Amer 142, Est GFR (MDRD) Non-Af 118, BUN/Creatinine Ratio 15.8, Glucose 181 H, Calcium 9.0, Triglycerides 631 H, Cholesterol 149, LDL Cholesterol TNP, VLDL Cholesterol TNP, HDL Cholesterol 30 L, TSH 2.55 03/08/22 06:32: POC Glucose 203 H Radiography Diagnostic Testing: Radiology Impression Chest X-Ray 03/07/22 13:34 IMPRESSION: Normal x-ray examination of the chest. Electronically Signed: Omid Hall MD at 15:00 EDT Reading Location ID and State: [address] [place] [address] , Service support , D/C Instructions Discharge Diet: Low fat / Low cholesterol Call your doctor if you observe: Shortness of breath, Dizziness and Chest pain Meaningful Use Info Meaningful Use Diagnoses (Choose all that apply): None applicable Discharge Plan Admission Admit Date/Time: 03/07/22 16:30 Primary Reason for Your Visit: New onset a.fib Attending Provider: Jaspal Fish Primary Care Provider: Josue Mueller Consulting Providers: Cristi Trevino ; Beau Flores Discharge Orders/Prescriptions Prescriptions: New Eliquis 5 mg Tablet 5 mg PO Q12H 30 Days Qty: 60 RF: 0 diltiazem HCl [Cardizem CD] 240 mg capsule,extended release 24hr 240 mg PO DAILY Qty: 30 RF: 0 Continued atorvastatin 40 mg Tablet 40 mg PO DAILY RF: 0 glipizide 10 mg Tablet Extended Release 24hr 10 mg PO DAILY RF: 0 amlodipine 10 mg Tablet 10 mg PO DAILY RF: 0 metformin 1,000 mg Tablet 1,000 mg PO BID RF: 0 pioglitazone 30 mg Tablet 30 mg PO DAILY RF: 0 losartan-hydrochlorothiazide 100-12.5 mg Tablet 1 tab PO DAILY RF: 0 Referrals / Follow Up: Josue Mueller MD [Primary Care Provider] - In 1 Week Caremlla Crow PA [PHYSICIAN [employer] STOCK ASSOCIATE] - Within 2 Weeks (Follow up with cardiology PA/[employer]) Disposition Disposition (needs filled in before D/C Order can be placed): Home, Self Care Documented by User: Dr. Jaspal Fish MD 03/08/22 11:49 Providers Date of Admission: 03/07/22 Reason For Visit: AFIB, RVR Medications at Discharge Home Medications amlodipine 10 mg PO DAILY 03/07/22 atorvastatin 40 mg PO DAILY 03/07/22 glipizide 10 mg PO DAILY 03/07/22 losartan-hydrochlorothiazide 1 tab PO DAILY 03/07/22 metformin 1,000 mg PO BID 03/07/22 pioglitazone 30 mg PO DAILY 03/07/22 apixaban [Eliquis] 5 mg PO Q12H 30 Days #60 tab 03/08/22 diltiazem HCl [Cardizem CD] 240 mg PO DAILY #30 cap 03/08/22 ABG / Lab / Microbiology Data Result Diagrams: 03/07/22 13:35 03/08/22 06:30 Discharge Plan Admission Admit Date/Time: 03/07/22 16:30 Primary Reason for Your Visit: New onset a.fib Attending Provider: Jaspal Fish Primary Care Provider: Josue Mueller Consulting Providers: Cristi Trevino ; Beau Flores Discharge Orders/Prescriptions Prescriptions: New Eliquis 5 mg Tablet 5 mg PO Q12H 30 Days Qty: 60 RF: 0 diltiazem HCl [Cardizem CD] 240 mg capsule,extended release 24hr 240 mg PO DAILY Qty: 30 RF: 0 Continued atorvastatin 40 mg Tablet 40 mg PO DAILY RF: 0 glipizide 10 mg Tablet Extended Release 24hr 10 mg PO DAILY RF: 0 amlodipine 10 mg Tablet 10 mg PO DAILY RF: 0 metformin 1,000 mg Tablet 1,000 mg PO BID RF: 0 pioglitazone 30 mg Tablet 30 mg PO DAILY RF: 0 losartan-hydrochlorothiazide 100-12.5 mg Tablet 1 tab PO DAILY RF: 0 Referrals / Follow Up: Josue Mueller MD [Primary Care Provider] - In 1 Week Carmella Crow PA [PHYSICIAN [employer] STOCK ASSOCIATE] - Within 2 Weeks (Follow up with cardiology PA/[employer]) Disposition Disposition (needs filled in before D/C Order can be placed): Home, Self Care Charges/Coding Addendum Addendum: Dr. Fish: I personally reviewed the chart and examined the patient, and agree with the above findings. 46-year-old male with a history of hypertension, hyperlipidemia, and diabetes presents to the hospital with palpitations and shortness of breath. He was found to be in A. fib with RVR. He did revert to normal sinus with rate control medications. Also given his [id number] score of 2 he was started on Eliquis. Currently awaiting echo however plan will be to discharge regardless either on a calcium channel jacob or if it shows a slightly reduced EF potentially a beta-jacob. He can follow-up with cardiology as he already has an appointment for [facility] set up. Appreciate cardiology's assistance in his care. I discussed with him the plan for discharge today he expressed understanding Aleksandra is going home and he would like to go home today. Clinical time spent in all aspects of patient care 25 minutes Visit Charges OBSV E&M: 95249 Observation care discharge
--- NOTE | 2022-03-08 12:00 | CASEMGMT ---
Pt to be sent home no Eliquis at discharge and per [facility], med needs a prior auth. This MARILYN TABARES attempted to complete prior auth via cover my meds without success at this time. Call to Cover my meds to attempt to complete prior auth at this time and MARILYN TABARES was directed to another plan number. Call to further number and prior auth finally obtained with , active date: 02/06/22-03/08/23. Call to [employer] and per tech, pt's co-pay/deductible is $515.14. Pt updated and voices understanding. Pt was provided Eliquis 30 day free trial card and Eliquis co-pay card with instructions at this time, voices understanding. Pt voices no further questions/concerns/needs. [place] MARILYN TABARES
[2022-03-08 12:03] VITALS: PULSE 93
[2022-03-08 12:16] LABS: Bedside Glucose 230 mg/dL (74-106)
--- NOTE | 2022-03-08 12:28 | PHA.DC.MC ---
Pharmacy Service has performed discharge medication reconciliation and counseling for this patient. 1. APIXABAN 5MG PO BID 2. DILTIAZEM 240MG PO DAILY The patient's discharge medication list was reviewed for discrepancies and discrepancies were resolved. Home Medications amlodipine 10 mg PO DAILY 03/07/22 atorvastatin 40 mg PO DAILY 03/07/22 glipizide 10 mg PO DAILY 03/07/22 losartan-hydrochlorothiazide 1 tab PO DAILY 03/07/22 metformin 1,000 mg PO BID 03/07/22 pioglitazone 30 mg PO DAILY 03/07/22 apixaban [Eliquis] 5 mg PO Q12H 30 Days #60 tab 03/08/22 diltiazem HCl [Cardizem CD] 240 mg PO DAILY #30 cap 03/08/22 The patient was counseled on the following discharge medications and changes in medications for homegoing were reviewed. The Reason for Use, instructions for use, and potential side effects were reviewed for all new medications. The patient's questions regarding all of their medications were answered. The patient was able to verbally demonstrate an understanding of their discharge medications.
--- NOTE | 2022-03-08 13:11 | CON.PCM.CA_ITS ---
Assessment & Plan Assessment/Plan (1) Atrial fibrillation, new onset: PLAN: Agree with Eliquis and switching short acting Cardizem to 240 mg long-acting Cardizem once a day. Agree with sleep study as an outpatient. Elliot mckeon can follow-up with us as an outpatient. Explained patient's condition and risks and benefits of Eliquis, Cardizem etc. to the patient. HPI Consult Data Date of Consult: 03/08/22 HPI Narrative HPI Narrative: RENY BEVERLY, is a 46 M who presents with atrial fibrillation with rapid ventricular response. Patient had been having palpitations for a few days and went to his primary care physician and was found to have A. fib with RVR in the office. He was sent to the emergency room. He was started on Cardizem drip and he converted to sinus rhythm. Patient is apparently scheduled for an outpatient sleep study. He has been started on Eliquis and p.o. Cardizem. 2D echo revealed preserved EF. Review of systems: All systems reviewed. All else is negative except in HPI. PFSH Medical History Diabetes GERD (gastroesophageal reflux disease) Hypertension Irregular heart beat Sleep apnea Smoker Home Medications amlodipine 10 mg PO DAILY 03/07/22 [History Last Taken 03/07/22] atorvastatin 40 mg PO DAILY 03/07/22 [History Last Taken 03/07/22] glipizide 10 mg PO DAILY 03/07/22 [History Last Taken 03/07/22] losartan-hydrochlorothiazide 1 tab PO DAILY 03/07/22 [History Last Taken 03/07/22] metformin 1,000 mg PO BID 03/07/22 [History Last Taken 03/07/22] pioglitazone 30 mg PO DAILY 03/07/22 [History Last Taken 03/07/22] apixaban [Eliquis] 5 mg PO Q12H 30 Days #60 tab 03/08/22 [Rx Last Taken Unknown] diltiazem HCl [Cardizem CD] 240 mg PO DAILY #30 cap 03/08/22 [Rx Last Taken Unknown] Allergy/AdvReac Type Severity Reaction Status Date / Time No Known Allergies Allergy Verified 03/07/22 12:21 Family History Father CAD (coronary artery disease) Mother Arthritis Surgical History Congenital hypertrophic pyloric stenosis Social History household members: family Smoking Status: Current every day smoker tobacco type: cigarettes alcohol intake: current alcohol intake frequency: a few times a month details: previous heavy alcohol use substance use type: does not use Physical Exam Const alert and oriented x3 Orientation / Consciousness: awake HEENT normocephalic Eyes no scleral icterus Resp normal respiratory effort Cardio regular rate Risk Stratification Risk Stratification Applicable: No Charges/Coding Visit Charges Inpatient E&M: 36550 Init Hosp L2 Objective Data Vital Signs: Vital Signs Temp Pulse Resp BP Pulse Ox 97.4 F L 93 16 123/84 H 99 03/08/22 10:11 03/08/22 12:03 03/08/22 10:11 03/08/22 10:11 03/08/22 10:11 Oxygen Delivery Method Room Air Weight: 261 lb 4.8 oz Body Mass Index (BMI) 36.4 Intake & Output: Intake and Output for Last 24 Hours 03/06/22 03/07/22 03/08/22 23:59 23:59 23:59 Intake Total 120 / 120 250 / 250 Balance 120 / 120 250 / 250 Lab / Micro Data Result Diagrams: 03/07/22 13:35 03/08/22 06:30 Labs: Laboratory Results - last 24 hr 03/07/22 13:35: WBC 9.5, RBC 5.29, Hgb 15.6, Hct 44.5, MCV 84.1, MCH 29.5, MCHC 35.1, RDW Std Deviation 36.0, RDW Coeff of Lala 11.9, Plt Count 368, MPV 9.4, Immature Gran % (Auto) 0.400, Neut % (Auto) 65.2, Lymph % (Auto) 22.5, [place] % (Auto) 9.7, Eos % (Auto) 1.9, Baso % (Auto) 0.3, Absolute Neuts (auto) 6.2, Absolute Lymphs (auto) 2.14, Nucleated RBC % 0 03/07/22 13:35: Sodium 136, Potassium 4.0, Chloride 103, Carbon Dioxide 25.0, Anion Gap 8, BUN 12, Creatinine 0.71, Estim Creat Clear Calc 139.94, Est GFR (MDRD) Af Amer 153, Est GFR (MDRD) Non-Af 127, BUN/Creatinine Ratio 16.9, Glucose 160 H, Calcium 9.8, Troponin I High Sens 13 03/07/22 13:35: B-Natriuretic Peptide 124.8 H 03/07/22 13:35: Magnesium 1.6, TSH 2.05 03/07/22 13:35: Phosphorus 3.3 03/07/22 17:25: POC Glucose 147 H 03/07/22 17:45: Troponin I High Sens 14 03/07/22 20:29: Troponin I High Sens 12 03/07/22 22:18: POC Glucose 142 H 03/08/22 06:30: Sodium 136, Potassium 3.7, Chloride 99, Carbon Dioxide 29.0, Anion Gap 8, BUN 12, Creatinine 0.76, Estim Creat Clear Calc 130.73, Est GFR (MDRD) Af Amer 142, Est GFR (MDRD) Non-Af 118, BUN/Creatinine Ratio 15.8, Glucose 181 H, Calcium 9.0, Triglycerides 631 H, Cholesterol 149, LDL Cholesterol TNP, VLDL Cholesterol TNP, HDL Cholesterol 30 L, TSH 2.55 03/08/22 06:32: POC Glucose 203 H 03/08/22 11:59: POC Glucose 230 H Cardiology Labs/Tests 03/07/22 13:35: WBC 9.5, RBC 5.29, Hgb 15.6, Hct 44.5, MCV 84.1, MCH 29.5, MCHC 35.1, Plt Count 368, MPV 9.4, Immature Gran % (Auto) 0.400, Neut % (Auto) 65.2, Lymph % (Auto) 22.5, [place] % (Auto) 9.7, Eos % (Auto) 1.9, Baso % (Auto) 0.3, Absolute Neuts (auto) 6.2, Nucleated RBC % 0 03/07/22 13:35: Sodium 136, Potassium 4.0, Chloride 103, Carbon Dioxide 25.0, Anion Gap 8, BUN 12, Creatinine 0.71, Est GFR (MDRD) Af Amer 153, Est GFR (MDRD) Non-Af 127, BUN/Creatinine Ratio 16.9, Glucose 160 H, Calcium 9.8 03/07/22 13:35: B-Natriuretic Peptide 124.8 H 03/07/22 13:35: Magnesium 1.6 03/07/22 13:35: Phosphorus 3.3 03/08/22 06:30: Sodium 136, Potassium 3.7, Chloride 99, Carbon Dioxide 29.0, Anion Gap 8, BUN 12, Creatinine 0.76, Est GFR (MDRD) Af Amer 142, Est GFR (MDRD) Non-Af 118, BUN/Creatinine Ratio 15.8, Glucose 181 H, Calcium 9.0, Triglycerides 631 H, Cholesterol 149, LDL Cholesterol TNP, VLDL Cholesterol TNP, HDL Cholesterol 30 L Rhythm: EKG: ECHO: Stress Test: Cardiac Cath: PCI: CT Surgery: Holter monitor: EPS: PPM: CXR: Chest CT Scan: Radiography Diagnostic Testing: Radiology Impression Chest X-Ray 03/07/22 13:34 IMPRESSION: Normal x-ray examination of the chest. Electronically Signed: Omid Hall MD at 15:00 EDT , Echocardiogram 03/08/22 05:55 Interpretation Summary Normal LV size. Left ventricular systolic function is normal. The estimated ejection fraction is 60 %. Mild tricuspid valve insufficiency. Contrast injection was performed. Ordering Physician: Beau Flores Referring Physician: Josue Mueller MD Performed By: Jaymie Lanza RCS
== END 2022-03-08 11:13 | disposition home or self-care (01) ==
LOC: ED 15:44 → PCU 16:43
PROVIDERS: Admitting Provider Internal Medicine; Emergency Provider Physician Assistant; PCP Family Medicine; Visit Provider Family Medicine
DX: I48.91 Unspecified atrial fibrillation (principal); E66.01 Morbid (severe) obesity due to excess calories; E11.9 Type 2 diabetes mellitus without complications; E78.5 Hyperlipidemia, unspecified; F17.210 Nicotine dependence, cigarettes, uncomplicated; Z79.84 Long term (current) use of oral hypoglycemic drugs; Z79.01 Long term (current) use of anticoagulants; I10 Essential (primary) hypertension; Z79.899 Other long term (current) drug therapy; G47.30 Sleep apnea, unspecified; K21.9 Gastro-esophageal reflux disease without esophagitis; Z68.36 Body mass index [BMI] 36.0-36.9, adult
CPT/HCPCS: 36415; 71045; 80048; 80061; 82962; 83735; 83880; 84100; 84443; 84484; 85025; 93005; 93306; 96374; 96375; 99218; 99251; 99285; 99406; Q9957; A4216; C8929; G0378; G0463

== ENCOUNTER 2022-03-15 17:22 | Emergency (ER) | payer OTHER, SELFPAY ==
[2022-03-15 17:23] VITALS: BP 141/93; PULSE 89; RESP 16; TEMP 36.6; O2SAT 95; BMI 36.3
[2022-03-15 19:14] VITALS: BP 139/91; PULSE 94; RESP 16; O2SAT 97
--- NOTE | 2022-03-15 19:58 | EKG12_ITS ---
Test Reason : BLOODY STOOL Blood Pressure : / mmHG Vent. Rate : 086 BPM Atrial Rate : 086 BPM P-R Int : 158 ms QRS Dur : 106 ms QT Int : 358 ms P-R-T Axes : 017 030 032 degrees QTc Int : 428 ms Normal sinus rhythm Normal ECG Confirmed by JARED SIMMONS MD ([id number]), videotape editor BITA GARZA ([id number]) on 03/18/2022 1:53:54 PM Referred By: MADDIE Confirmed By:JARED SIMMONS MD
--- NOTE | 2022-03-15 19:59 | EX.ED.DYSGE1 ---
HPI History of Present Illness Chief Complaint: GI Bleed Informant: patient Onset/Context/Timing Onset: Today Current Severity: Mild Maximum Severity: Mild Narrative Narrative: Use thePatient presents after having an episode of blood in his stool today. He was at work tonight extreme noted bright red blood on the outside of his stool. He was just started on Eliquis recently for A. fib. His last dose was at 8 AM this morning. He does report history of hemorrhoids and will flare occasionally. He denies rectal pain at this time. PFSH PFSH Medical History Diabetes GERD (gastroesophageal reflux disease) Hypertension Irregular heart beat Sleep apnea Smoker Home Medications amlodipine 10 mg PO DAILY 03/07/22 [History Last Taken 03/07/22] atorvastatin 40 mg PO DAILY 03/07/22 [History Last Taken 03/07/22] glipizide 10 mg PO DAILY 03/07/22 [History Last Taken 03/07/22] losartan-hydrochlorothiazide 1 tab PO DAILY 03/07/22 [History Last Taken 03/07/22] metformin 1,000 mg PO BID 03/07/22 [History Last Taken 03/07/22] pioglitazone 30 mg PO DAILY 03/07/22 [History Last Taken 03/07/22] apixaban [Eliquis] 5 mg PO Q12H 30 Days #60 tab 03/08/22 [Rx Last Taken Unknown] diltiazem HCl [Cardizem CD] 240 mg PO DAILY #30 cap 03/08/22 [Rx Last Taken Unknown] Allergy/AdvReac Type Severity Reaction Status Date / Time No Known Allergies Allergy Verified 03/15/22 17:23 Family History Father CAD (coronary artery disease) Mother Arthritis Surgical History Congenital hypertrophic pyloric stenosis Social History household members: family Smoking Status: Current every day smoker tobacco type: cigarettes alcohol intake: current alcohol intake frequency: a few times a month details: previous heavy alcohol use substance use type: does not use ROS ROS ED Constitutional Constitutional ED: Denies chills or fever(s) Eyes Eyes: Denies change in vision ENT ENT ED: Denies sore throat Cardiovascular Cardiovascular: Denies chest pain Respiratory/Chest Respiratory/Chest: Denies cough or dyspnea Gastrointestinal Gastrointestinal: Reports other Details: Bright red blood per rectum ; Denies abdominal pain, nausea or vomiting Genitourinary Genitourinary ED: Denies dysuria Musculoskeletal Musculoskeletal: Denies back pain Integumentary Denies rash Neurologic Neurologic: Denies headache(s) or weakness Allergic/Immunologic Allergic/Immunologic ED: Denies urticaria EXAM Physical Exam Const Vital Signs: 03/15/22 17:23 03/15/22 19:14 03/15/22 21:02 Temperature 97.9 F Temperature Source Temporal Pulse Rate 89 94 84 Respiratory Rate 16 16 16 Blood Pressure 141/93 H 139/91 H 139/81 H Blood Pressure Mean 109 107 100 Pulse Ox 95 97 96 Oxygen Delivery Method Room Air Room Air Room Air Positive well nourished and well developed General Appearance ED: well developed HEENT Reports moist mucous membranes Eyes PERRL and EOMs intact bilaterally Neck supple Chest Wall inspection of chest normal and palpation of chest normal Resp normal respiratory effort and clear to auscultation bilaterally Cardio regular rate and regular rhythm GI normal to inspection, nondistended, normoactive bowel sounds and non-tender Palpation: soft Extremity normal to inspection Neuro Sensorium / Orientation: alert Psych mental status grossly normal Skin no rashes or lesions noted MDM MDM MDM Narrative Medical decision making narrative: Patient placed on director of cardiac cath lab. EKG obtained along with lab work. Lab Data Labs: Laboratory Results - last 24 hr 03/15/22 03/15/22 03/15/22 20:08 20:08 20:08 WBC 9.1 RBC 5.10 Hgb 14.8 Hct 43.6 MCV 85.5 MCH 29.0 MCHC 33.9 RDW Std Deviation 36.3 RDW Coeff of Lala 11.6 Plt Count 335 MPV 9.0 Immature Gran % (Auto) 0.200 Neut % (Auto) 63.4 Lymph % (Auto) 25.2 [place] % (Auto) 8.6 Eos % (Auto) 2.2 Baso % (Auto) 0.4 Absolute Neuts (auto) 5.7 Absolute Lymphs (auto) 2.28 Nucleated RBC % 0 PT 13.6 INR 1.1 APTT 26.0 Sodium 137 Potassium 3.8 Chloride 101 Carbon Dioxide 30.0 Anion Gap 6 BUN 18 Creatinine 0.77 Estim Creat Clear Calc 129.03 Est GFR (MDRD) Af Amer 140 Est GFR (MDRD) Non-Af 116 BUN/Creatinine Ratio 23.4 H Glucose 166 H Calcium 10.0 EKG Initial EKG: Attestation: I personally reviewed and interpreted this EKG as follows: Interpretation: Sinus Rhythm (Sinus 86 with no acute ischemia.) Treatment and Re-Evaluation Narrative: Hemoglobin is stable from recent hospitalization. Coags unremarkable. On repeat evaluation patient resting comfortably. Rectal examination performed shows no obvious external hemorrhoids or sign of blood. At this time patient is stable and I advised him to continue his current Eliquis and monitor for any further bleeding. If this becomes more frequent he will need to contact his vaccinator to see about continuation of the Eliquis given the fact that he is back in sinus rhythm at this time. He voices understanding and agreement. Discharge Plan Triage Chief Complaint: GI Bleed ED Provider: Breana Parisi Dx/Rx/DC Orders Clinical Impression: Blood in stool Instructions: ED Lower GI Bleeding (Stable) Prescriptions: No Action atorvastatin 40 mg Tablet 40 mg PO DAILY RF: 0 glipizide 10 mg Tablet Extended Release 24hr 10 mg PO DAILY RF: 0 amlodipine 10 mg Tablet 10 mg PO DAILY RF: 0 metformin 1,000 mg Tablet 1,000 mg PO BID RF: 0 pioglitazone 30 mg Tablet 30 mg PO DAILY RF: 0 losartan-hydrochlorothiazide 100-12.5 mg Tablet 1 tab PO DAILY RF: 0 Eliquis 5 mg Tablet 5 mg PO Q12H 30 Days Qty: 60 RF: 0 diltiazem HCl [Cardizem CD] 240 mg capsule,extended release 24hr 240 mg PO DAILY Qty: 30 RF: 0 Primary Care Provider: Josue Mueller Referrals: Josue Mueller MD [Primary Care Provider] - As Needed Activity Restrictions/Additional Instructions: As discussed, please follow-up with your vaccinator if you continue to have bleeding. You are back in sinus rhythm at this time. They will need to evaluate whether you need to continue the Eliquis at this point. Disposition Disposition: Home, Self Care
[2022-03-15 20:16] LABS: Absolute Lymphocyte Count 2.28 X10^3/uL (0.83-4.51); Absolute Neutrophil Count 5.7 X10^3/uL (2.0-7.7); Basophil# 0.04 X10^3/uL; Basophil% 0.4 % (0-1); Eosinophils% 2.2 % (0-5); Hematocrit 43.6 % (40-54); Hemoglobin 14.8 g/dL (13.0-16.5); Lymphocyte # 2.28 X10^3/ul (0.83-4.51); Lymphocyte % 25.2 % (19-41); Mean Corp Hgb Conc 33.9 g/dL (32-36); Mean Corpuscular Volume 85.5 fL (80-94); Monocyte# 0.78 X10^3/uL; Monocyte% 8.6 % (0-10); NRBC Flagged by Analyzer 0 % (0-5); Neutrophil # 5.73 X10^3/uL (2.7-7.7); Neutrophil % 63.4 % (47-70); Platelet Count 335 K/mm3 (150-450); RBC Distribution Width CV 11.6 % (11.6-14.6); RBC Distribution Width SD 36.3 fl (35.1-43.9); White Blood Count 9.1 K/mm3 (4.4-11.0)
[2022-03-15 20:32] LABS: Anion Gap 6 (5-15); BUN 18 mg/dL (7-18); BUN/Creat Ratio 23.4 RATIO (10-20); Chloride 101 mmol/L (98-107); Creatinine, Serum 0.77 mg/dL (0.70-1.30); EST Glomerular Filtration Rate 116 mL/min (>60); Est Glom Filt Rate - Afr Amer 140 mL/min (>60); Estimated Creatinine Clearance 129.03 ml/min; Glucose 166 mg/dL (74-106); Potassium 3.8 mmol/L (3.5-5.1); Sodium Level 137 mmol/L (136-145)
[2022-03-15 20:44] LABS: International Normalized Ratio 1.1; Prothrombin Time (Protime)PT. 13.6 SECONDS (11.7-14.9)
[2022-03-15 21:02] VITALS: BP 139/81; PULSE 84; RESP 16; O2SAT 96
[2022-03-15 21:42] VITALS: BP 126/83; PULSE 82; RESP 14; O2SAT 97
== END 2022-03-15 21:49 | disposition home or self-care (01) ==
PROVIDERS: Emergency Provider Emergency Medicine; PCP Family Medicine; Visit Provider Emergency Medicine
DX: K92.1 Melena (principal); I48.91 Unspecified atrial fibrillation; E11.9 Type 2 diabetes mellitus without complications; F17.210 Nicotine dependence, cigarettes, uncomplicated; I10 Essential (primary) hypertension; Z79.01 Long term (current) use of anticoagulants
CPT/HCPCS: 80048; 85025; 85610; 85730; 93005; 99284; A4216

== ENCOUNTER → 2022-03-19 | Outpatient (CLI) | payer OTHER, SELFPAY ==
--- NOTE | 2022-03-19 19:31 | STRESSREP_ITS ---
Stress Test Report Date: 03-19-2022 Procedure: Exercise tolerance test/imaging study Indications: Palpitations; atrial fibrillation Consent: Per the patient Procedure: The patient exercised on a David protocol for 8 minutes and 35 seconds completing Stage II and 2 minutes and 35 seconds of Stage III achieving a peak heart rate of 155 bpm (88% predicted maximal heart rate) with a peak blood pressure 170/98 mmHg and a peak MET capacity of 10 METs. The baseline ECG demonstrated normal sinus rhythm. The peak exercise ECG demonstrated somatic/motion artifact with no obvious ECG changes. There was an occasional PVC during exercise. The functional capacity was considered good. There was no complaint of chest discomfort during exercise or recovery. The examination was discontinued secondary to dyspnea. Impression: 1. Technically adequate (percent predicted maximal heart rate greater than 85%) exercise tolerance test 2. Peak exercise ECG with somatic/motion artifact with no obvious ECG changes 3. There was an occasional PVC during exercise 4. Nuclear images pending Myocardial perfusion imaging study: Technique: The patient was injected with 14.9 mCi of technetium 99m Cardiolite and subsequently rest SPECT Cardiolite nuclear imaging was obtained in the horizontal long, vertical long, and short axis views. The patient exercised on a David protocol for 8 minutes and 35 seconds completing Stage II and 2 minutes and 35 seconds of Stage III achieving a peak heart rate of 155 bpm (88% predicted maximal heart rate) with a peak blood pressure 170/98 mmHg and a peak MET capacity of 10 METs. The patient was injected with 44.7 mCi of technetium 99m Cardiolite and subsequently stress SPECT Cardiolite nuclear imaging was obtained in the horizontal long, vertical long, and short axis views. A gated Cardiolite study at peak stress was obtained. Interpretation: Rest and stress SPECT Cardiolite nuclear imaging status post realignment, normalization, and attenuation correction, demonstrates the appearance of relative uniform tracer uptake and myocardial perfusion appearing within normal limits. There is end systolic thickening and brightening. The gated Cardiolite study demonstrates myocardial thickening and inward wall motion. The reported LVEF is 73%. Impression: 1. Rest and stress SPECT Cardiolite nuclear imaging demonstrate relative uniform tracer uptake and myocardial perfusion appearing within normal limits. 2. The gated Cardiolite study reports an LVEF of 73%. This note was generated with [employer] software. It may contain incorrect words, spelling, and punctuation that were not noted in checking the note before signing.
== END | disposition home or self-care (01) ==
LOC: CVS 06:25
PROVIDERS: PCP Family Medicine; Visit Provider Registered Nurse
DX: R94.31 Abnormal electrocardiogram [ECG] [EKG] (principal)
CPT/HCPCS: 78452; 93017; A9500; A4216

== ENCOUNTER → 2022-05-03 | Outpatient (CLI) | payer OTHER, SELFPAY ==
[2022-05-03 16:25] LABS: Hemoglobin 14.6 g/dL (13.0-16.5); Mean Corp Hgb Conc 35.6 g/dL (32-36); Mean Corpuscular Hgb 29.9 pg (27.0-32.0); Mean Corpuscular Volume 83.8 fL (80-94); Mean Platelet Vol. 10.4 fl (6.2-12.0); Platelet Count 380 K/mm3 (150-450); RBC Distribution Width CV 12.4 % (11.6-14.6); RBC Distribution Width SD 37.3 fl (35.1-43.9); Red Blood Count 4.89 M/mm3 (4.6-6.2); White Blood Count 6.8 K/mm3 (4.4-11.0)
[2022-05-03 17:26] LABS: Anion Gap 9 (5-15); BUN 14 mg/dL (7-18); BUN/Creat Ratio 20.2 RATIO (10-20); Calcium,Total 9.8 mg/dL (8.5-10.1); Chloride 101 mmol/L (98-107); Creatinine, Serum 0.69 mg/dL (0.70-1.30); EST Glomerular Filtration Rate 131 mL/min (>60); Est Glom Filt Rate - Afr Amer 158 mL/min (>60); Glucose 133 mg/dL (74-106); Potassium 3.8 mmol/L (3.5-5.1); Sodium Level 137 mmol/L (136-145)
== END | disposition home or self-care (01) ==
LOC: LAB 15:07
PROVIDERS: PCP Family Medicine; Referring Provider Physician Assistant Medical; Visit Provider Physician Assistant Medical
DX: R00.2 Palpitations (principal); I48.0 Paroxysmal atrial fibrillation; Z87.19 Personal history of other diseases of the digestive system
CPT/HCPCS: 36415; 80048; 85027

== ENCOUNTER → 2022-05-15 | Outpatient (CLI) | payer OTHER, SELFPAY | END | disposition home or self-care (01) | LOC: PSN 11:52 | PROVIDERS: PCP Family Medicine; Referring Provider Physician Assistant Medical; Visit Provider Physician Assistant Medical | DX: I48.0 Paroxysmal atrial fibrillation (principal); R00.2 Palpitations | CPT/HCPCS: 93225; 93226 ==

== ENCOUNTER 2022-07-08 02:45 | Emergency (ER) | payer OTHER, SELFPAY ==
[2022-07-08 02:46] VITALS: BP 136/97; PULSE 77; RESP 14; TEMP 36.6; O2SAT 97; BMI 34.6
--- NOTE | 2022-07-08 02:46 | EKG12_ITS ---
Test Reason : CP Blood Pressure : / mmHG Vent. Rate : 076 BPM Atrial Rate : 076 BPM P-R Int : 190 ms QRS Dur : 108 ms QT Int : 368 ms P-R-T Axes : 050 042 028 degrees QTc Int : 414 ms Normal sinus rhythm with sinus arrhythmia Cannot rule out Anterior infarct , age undetermined Abnormal ECG Confirmed by MARI KIMBLE, TYRONE ([id number]), editor magazine BITA GARZA ([id number]) on 07/09/2022 9:25:56 AM Referred By: Confirmed By:YURIY GUERRA MD
--- NOTE | 2022-07-08 02:58 | EDS_ITS ---
HPI History of Present Illness Chief Complaint: Palpitations Informant: patient Onset/Context/Timing Onset: Hours (5) Activity at onset: sudden Timing: Continuous Quality: Positive for - (Skipping beats) Location: Substernal Worsened By: - (Laying down) Relieved By: Nothing Associated Symptoms: Positive for Acid Reflux and Palpitations; Negative for Nausea, Vomiting, Diaphoresis, Dyspnea, Cough, Fever or Lightheadedness Narrative Narrative: Patient presents with palpitations that began approximately 5 hours prior to arrival. Patient states he had a similar episode yesterday but this resolved. Patient states it has been constant for the last 5 hours. Patient states it feels worse when he lays down. Patient states it feels like his heart is skipping beats. Patient states the symptoms are in the substernal area. Patient denies any radiation. Patient admits to some acid reflux. Patient denies any nausea or vomiting. Patient denies any diaphoresis. Patient denies any fevers or chills. CVD Risk Factors: Positive for Hypertension, Diabetes, Hypercholesterolemia and Family History 1' </=55; Negative for Smoking PE Risk Factors: Negative for Recent Travel/Surgery, Recent Immobilization, Prior DVT or PE, Cancer or OCP + Smoking + >/=35 PFSH PFSH Medical History Atrial fibrillation, new onset Diabetes Essential hypertension GERD (gastroesophageal reflux disease) History of abscessed tooth Irregular heart beat IRINA (obstructive sleep apnea) PAF (paroxysmal atrial fibrillation) Smoker Type 2 diabetes mellitus Home Medications atorvastatin 40 mg tablet 40 mg PO DAILY cholesterol 03/07/22 [History Last Taken 03/07/22] glipizide 10 mg tablet, extended release 24 hr 10 mg PO DAILY blood sugar 03/07/22 [History Last Taken 03/07/22] losartan 100 mg-hydrochlorothiazide 12.5 mg tablet 1 tab PO DAILY heart 03/07/22 [History Last Taken 03/07/22] metformin 1,000 mg tablet 1,000 mg PO BID blood sugar 03/07/22 [History Last Taken 03/07/22] pioglitazone 30 mg tablet 30 mg PO DAILY diabetes 03/07/22 [History Last Taken 03/07/22] apixaban 5 mg tablet (Eliquis) 5 mg PO Q12H #60 tabs 04/02/22 [Rx Last Taken Unknown] diltiazem HCl 240 mg capsule,extended release 24 hr (Cardizem CD) 240 mg PO DAILY #90 caps 04/02/22 [Rx Last Taken Unknown] dulaglutide 0.75 mg/0.5 mL subcutaneous pen injector (Trulicity) 0.75 mg subcut QWEEK 06/06/22 [History Last Taken Unknown] Allergy/AdvReac Type Severity Reaction Status Date / Time No Known Allergies Allergy Verified 07/08/22 02:48 Family History Father CAD (coronary artery disease) Mother Arthritis Surgical History Congenital hypertrophic pyloric stenosis Social History household members: family Smoking Status: Former smoker quit date: 03/08/22 how long ago did patient quit smokin weeks ago alcohol intake: current alcohol intake frequency: a few times a month substance use type: does not use caffeine: Yes (Occasionally) Type: carbonated beverages ROS ROS ED Constitutional Constitutional ED: Denies chills or fever(s) Eyes Eyes: Denies blurry vision or change in vision ENT ENT ED: Denies rhinorrhea or sore throat Cardiovascular Cardiovascular: Reports chest pain and palpitations Respiratory/Chest Respiratory/Chest: Denies cough or dyspnea Gastrointestinal Gastrointestinal: Denies nausea or vomiting Genitourinary Genitourinary ED: Denies dysuria or hematuria Musculoskeletal Musculoskeletal: Denies back pain or neck pain Integumentary Denies abscess or rash Neurologic Neurologic: Denies headache(s) or weakness Allergic/Immunologic Allergic/Immunologic ED: Denies mouth swelling or urticaria EXAM Physical Exam Const Vital Signs: 07/08/22 02:46 07/08/22 02:53 07/08/22 03:12 Temperature 97.9 F Temperature Source Temporal Pulse Rate 77 Respiratory Rate 14 Respiratory Effort Normal Respiratory Pattern Normal Blood Pressure 136/97 H Blood Pressure Mean 110 Pulse Ox 97 99 Oxygen Delivery Method Room Air Room Air 07/08/22 05:13 Temperature Temperature Source Pulse Rate 79 Respiratory Rate 14 Respiratory Effort Respiratory Pattern Blood Pressure 138/83 H Blood Pressure Mean 101 Pulse Ox 97 Oxygen Delivery Method Room Air Positive well nourished, well developed and obese General Appearance ED: well developed and NAD Nutritional Appearance: obese HEENT Reports moist mucous membranes Neck supple and no JVD Resp normal respiratory effort and clear to auscultation bilaterally Cardio regular rate, regular rhythm and no murmurs GI normal to inspection, nondistended, normoactive bowel sounds and non-tender Palpation: soft Extremity normal to inspection General Extremety ED: Negative for edema or tenderness General Extremity: Negative for edema Neuro oriented x3, CN's II-XII intact bilaterally and no sensory deficits noted Sensorium / Orientation: alert Motor Exam: strength 5/5 throughout Psych mental status grossly normal Skin no rashes or lesions noted Heart Score History: Slightly/Non-Suspicious ECG: Normal Age: >45 - <65 years Risk Factors: >/= 3 Risk Factors or History of CAD Troponin: </= Normal Limit Score: 3 MDM MDM MDM Narrative Medical decision making narrative: Patient was given aspirin. EKG was obtained. On my interpretation, it showed a normal sinus rhythm with a rate of 76. LA interval, QRS interval, and QTc intervals were all normal. [place] was normal. There are no acute ST or T wave changes. Portable 1 view chest x-ray was obtained. On my interpretation, lung santo are clear. There is normal cardiac silhouette. Bony thorax is normal. There is no acute process noted. Radiologist also interpreted the x-ray and agrees. CBC was within normal limits. Basic metabolic profile was within normal limits. Initial high-sensitivity troponin was normal at 8. 2-hour repeat high-sensitivity troponin was normal at 9. Repeat EKG was obtained because the patient developed some palpitations while here in the emergency department. He was noted to have PVCs on the monitor. Repeat EKG was interpreted by myself and showed normal sinus rhythm with a rate of 78. There are no acute ST or T wave changes. There are no ectopic beats noted. LA interval, QRS interval, and QTc intervals are within normal limits. [place] is normal. This was unchanged. Patient is feeling better on reevaluation. Patient was advised of his findings. Patient was instructed to follow-up with his primary care physician in 5 to 7 days. Patient has a HEART score of 3. Patient was advised that this is low risk for acute cardiac event. Patient understands and is agreeable with the plan. All questions were answered. Lab Data Attestation: I reviewed the patient's lab results. Labs: Laboratory Results - last 24 hr 07/08/22 07/08/22 07/08/22 03:00 03:00 05:12 WBC 8.5 RBC 5.00 Hgb 14.0 Hct 42.2 MCV 84.4 MCH 28.0 MCHC 33.2 RDW Std Deviation 38.4 RDW Coeff of Lala 12.6 Plt Count 365 MPV 9.1 Immature Gran % (Auto) 0.400 Neut % (Auto) 57.4 Lymph % (Auto) 28.4 [place] % (Auto) 10.0 Eos % (Auto) 3.4 Baso % (Auto) 0.4 Absolute Neuts (auto) 4.9 Absolute Lymphs (auto) 2.42 Nucleated RBC % 0 Sodium 138 Potassium 3.7 Chloride 102 Carbon Dioxide 28.0 Anion Gap 8 BUN 13 Creatinine 0.70 Estim Creat Clear Calc 140.44 Est GFR (MDRD) Af Amer 155 Est GFR (MDRD) Non-Af 128 BUN/Creatinine Ratio 18.5 Glucose 111 H Calcium 9.7 Troponin I High Sens 8 9 Radiography Chest X-Ray - ED: 1 View, Read by ED Physician, Read by Radiologist and No Acute Disease Diagnostic Testing: Clinical Impression(s) from Imaging Studies Chest X-Ray 07/08/22 03:04 IMPRESSION: No radiographic evidence of acute cardiopulmonary disease. Electronically Signed: Mekhi Mc MD at 3:44 EDT , EKG Initial EKG: Attestation: I personally reviewed and interpreted this EKG as follows: Interpretation: Sinus Rhythm (76) and No Acute Injury Pattern Prior EKG tracings: available for review Prior: Unchanged (02/13/2022) Follow-up EKG: Attestation: I personally reviewed and interpreted this EKG as follows: Interpretation: Sinus Rhythm (78) and No Acute Injury Pattern Prior EKG tracings: available for review Prior: Unchanged Discharge Plan Triage Chief Complaint: Palpitations ED Provider: Josue Espinosa Dx/Rx/DC Orders Clinical Impression: Palpitations, Essential hypertension Instructions: ED Palpitations Prescriptions: No Action Trulicity 0.75 mg/0.5 mL pen injector 0.75 mg subcut QWEEK diltiazem HCl [Cardizem CD] 240 mg capsule,extended release 24hr 240 mg PO DAILY Qty: 90 3RF Eliquis 5 mg tablet 5 mg PO Q12H Qty: 60 6RF atorvastatin 40 mg Tablet 40 mg PO DAILY glipizide 10 mg Tablet Extended Release 24hr 10 mg PO DAILY metformin 1,000 mg Tablet 1,000 mg PO BID pioglitazone 30 mg Tablet 30 mg PO DAILY losartan-hydrochlorothiazide 100-12.5 mg Tablet 1 tab PO DAILY Primary Care Provider: Care Physician,No Primary Referrals: Josue Mueller MD [Med Staff - Adjunct Art History Instructor] - 5-7 Days Disposition Disposition: Home, Self Care
--- NOTE | 2022-07-08 03:04 | RAD_ITS ---
EXAM: XR CHEST, 1 VIEW CLINICAL INDICATION: chest pain TECHNIQUE: Frontal view of the chest. This report was created using [employer] report generation technology. COMPARISON: 03/07/2022 FINDINGS: LUNGS AND PLEURAL SPACES: Unremarkable. No consolidation or edema. No pneumothorax. No effusion. HEART: Unremarkable. Cardiac silhouette not enlarged. MEDIASTINUM: Central airways and mediastinal contour are unremarkable. BONES/JOINTS: Unremarkable. SOFT TISSUES: Unremarkable. RAD/Chest 1 View (Portable) IMPRESSION: No radiographic evidence of acute cardiopulmonary disease. Electronically Signed: Mekhi Mc MD at 3:44 EDT ,
--- NOTE | 2022-07-08 03:04 | EKG12_ITS ---
Test Reason : ARRHYTMIA Blood Pressure : / mmHG Vent. Rate : 078 BPM Atrial Rate : 078 BPM P-R Int : 178 ms QRS Dur : 106 ms QT Int : 368 ms P-R-T Axes : 035 042 031 degrees QTc Int : 419 ms Normal sinus rhythm Incomplete right bundle branch block Possible Anterior infarct , age undetermined Abnormal ECG Confirmed by MARI KIMBLE, TYRONE ([id number]), design editor BITA GARZA ([id number]) on 07/09/2022 9:22:21 AM Referred By: Confirmed By:YURIY GUERRA MD
[2022-07-08] MEDS: Aspirin 81 MG TAB.CHEW 324 MG PO (03:11)
[2022-07-08 03:12] VITALS: O2SAT 99
[2022-07-08 03:27] LABS: Absolute Lymphocyte Count 2.42 X10^3/uL (0.83-4.51); Absolute Neutrophil Count 4.9 X10^3/uL (2.0-7.7); Basophil# 0.03 X10^3/uL; Basophil% 0.4 % (0-1); Eosinophil# 0.29 X10^3/uL; Eosinophils% 3.4 % (0-5); Hematocrit 42.2 % (40-54); Lymphocyte # 2.42 X10^3/ul (0.83-4.51); Lymphocyte % 28.4 % (19-41); Mean Corp Hgb Conc 33.2 g/dL (32-36); Mean Corpuscular Volume 84.4 fL (80-94); Mean Platelet Vol. 9.1 fl (6.2-12.0); Monocyte# 0.85 X10^3/uL; NRBC Flagged by Analyzer 0 % (0-5); Neutrophil # 4.89 X10^3/uL (2.7-7.7); Neutrophil % 57.4 % (47-70); Platelet Count 365 K/mm3 (150-450); RBC Distribution Width CV 12.6 % (11.6-14.6); RBC Distribution Width SD 38.4 fl (35.1-43.9); White Blood Count 8.5 K/mm3 (4.4-11.0)
[2022-07-08 03:47] LABS: Anion Gap 8 (5-15); BUN 13 mg/dL (7-18); BUN/Creat Ratio 18.5 RATIO (10-20); Calcium,Total 9.7 mg/dL (8.5-10.1); Chloride 102 mmol/L (98-107); EST Glomerular Filtration Rate 128 mL/min (>60); Est Glom Filt Rate - Afr Amer 155 mL/min (>60); Estimated Creatinine Clearance 140.44 ml/min; Glucose 111 mg/dL (74-106); Potassium 3.7 mmol/L (3.5-5.1); Sodium Level 138 mmol/L (136-145); Troponin-I HS (w/2H Reflex) 8 pg/mL (3.0-78.0)
[2022-07-08 05:13] VITALS: BP 138/83; PULSE 79; RESP 14; O2SAT 97
[2022-07-08 05:18] LABS: Reflex Troponin-HS? (from REC) Y
[2022-07-08 06:05] LABS: Troponin-I HS 9 pg/mL (3.0-78.0)
[2022-07-08 06:34] VITALS: BP 137/80; PULSE 76; RESP 17; O2SAT 96
== END 2022-07-08 06:35 | disposition home or self-care (01) ==
PROVIDERS: Emergency Provider Emergency Medicine; Visit Provider Emergency Medicine
DX: R00.2 Palpitations (principal); I48.91 Unspecified atrial fibrillation; E11.9 Type 2 diabetes mellitus without complications; I10 Essential (primary) hypertension; Z87.891 Personal history of nicotine dependence; G47.33 Obstructive sleep apnea (adult) (pediatric)
CPT/HCPCS: 71045; 80048; 84484; 85025; 93005; 99285; A4216

== ENCOUNTER → 2023-06-02 | Outpatient (CLI) | payer MEDICAID, SELFPAY ==
[2023-06-02 12:28] LABS: Absolute Lymphocyte Count 2.05 X10^3/uL (0.83-4.51); Absolute Neutrophil Count 3.9 X10^3/uL (2.0-7.7); Basophil# 0.05 X10^3/uL; Basophil% 0.7 % (0-1); Eosinophil# 0.36 X10^3/uL; Eosinophils% 5.2 % (0-5); Hematocrit 42.9 % (40-54); Hemoglobin 14.3 g/dL (13.0-16.5); Lymphocyte # 2.05 X10^3/ul (0.83-4.51); Lymphocyte % 29.4 % (19-41); Mean Corp Hgb Conc 33.3 g/dL (32-36); Mean Corpuscular Hgb 28.3 pg (27.0-32.0); Mean Platelet Vol. 9.7 fl (6.2-12.0); Monocyte# 0.58 X10^3/uL; Monocyte% 8.3 % (0-10); NRBC Flagged by Analyzer 0 % (0-5); Platelet Count 295 K/mm3 (150-450); RBC Distribution Width CV 12.4 % (11.6-14.6); RBC Distribution Width SD 37.8 fl (35.1-43.9); Red Blood Count 5.05 M/mm3 (4.6-6.2)
[2023-06-02 13:41] LABS: Microalbumin,Random Urine 8.8 mg/L (NO RANGE EST.); Microalbumin:Creatinine Ratio 9.4 mg/g CRE (<30 mg/g CRE)
[2023-06-02 13:55] LABS: ALB/GLOB Ratio 1.1 RATIO (0.9-2.4); AST(SGOT) 13 U/L (15-37); Alanine Aminotransfer ALT/SGPT 27 U/L (16-61); Alkaline Phosphatase 96 U/L (45-117); Anion Gap 7 (5-15); BUN 10 mg/dL (7-18); BUN/Creat Ratio 14.9 RATIO (10-20); Calcium,Total 9.6 mg/dL (8.5-10.1); Chloride 104 mmol/L (98-107); Cholesterol 122 mg/dL (200); Creatinine, Serum 0.67 mg/dL (0.70-1.30); EST Glomerular Filtration Rate 135 mL/min (>60); Est Glom Filt Rate - Afr Amer 163 mL/min (>60); Globulin 3.6 g/dL (2.2-4.2); Glucose 154 mg/dL (74-106); High Density Lipoprotein 38 mg/dL; Protein, Total 7.6 g/dL (6.4-8.2); Sodium Level 138 mmol/L (136-145); Triglycerides 252 mg/dL; Very Low Density Lipoprotein 50 mg/dL (5-40)
== END | disposition home or self-care (01) ==
LOC: BIMLAB 10:09
PROVIDERS: PCP Internal Medicine; Referring Provider Internal Medicine; Visit Provider Internal Medicine
DX: I10 Essential (primary) hypertension (principal); E11.9 Type 2 diabetes mellitus without complications; E78.5 Hyperlipidemia, unspecified
CPT/HCPCS: 36415; 80053; 80061; 82043; 82570; 85025

== ENCOUNTER → 2023-09-03 | Outpatient (CLI) | payer MEDICAID, SELFPAY ==
[2023-09-03 13:05] LABS: ALB/GLOB Ratio 1.1 RATIO (0.9-2.4); AST(SGOT) 10 U/L (15-37); Alanine Aminotransfer ALT/SGPT 22 U/L (16-61); Albumin, Serum 3.8 g/dL (3.2-5.0); Alkaline Phosphatase 81 U/L (45-117); Anion Gap 9 (5-15); BUN 13 mg/dL (7-18); Calcium,Total 9.6 mg/dL (8.5-10.1); Chloride 103 mmol/L (98-107); Cholesterol 167 mg/dL (200); Creatinine, Serum 0.68 mg/dL (0.70-1.30); EST Glomerular Filtration Rate 132 mL/min (>60); Est Glom Filt Rate - Afr Amer 160 mL/min (>60); Globulin 3.5 g/dL (2.2-4.2); Glucose 160 mg/dL (74-106); High Density Lipoprotein 32 mg/dL; Potassium 4.1 mmol/L (3.5-5.1); Protein, Total 7.3 g/dL (6.4-8.2); Sodium Level 137 mmol/L (136-145); Triglycerides 316 mg/dL; Very Low Density Lipoprotein 63 mg/dL (5-40)
== END | disposition home or self-care (01) ==
LOC: BIMLAB 07:58
PROVIDERS: PCP Internal Medicine; Visit Provider Internal Medicine
DX: E11.9 Type 2 diabetes mellitus without complications (principal); E78.5 Hyperlipidemia, unspecified
CPT/HCPCS: 36415; 80053; 80061

== ENCOUNTER → 2023-12-11 | Outpatient (CLI) | payer MEDICAID, SELFPAY ==
--- OUTSIDE RECORDS SUMMARY | 2023-12-11 08:33 | XMS RPT_ITS | CCD ---
Author Name Unknown Address [address] [place] [address] Organization [facility] Care Team Providers Care Dive Supervisor Name Role Phone Unavailable Primary Care Provider UnavailNARCISO Carroll Attending Unavailable YARED WHIPPLE Referring Unavailable CAN MONZON Primary Care Unavailable Yared Whipple Unavailable Narciso Correia Can Monzon DO Primary Care Provider [phone] Medications Completed/Discontinued Medications Medication Drug Class(es) Dates Sig (Normalized) Sig (Original) amLODIPine 5 mg oral tablet (1 source) Dihydropyridine Calcium Channel Rachle Start: 08-22-2020 End: 10-31-2022 amLODIPine (NORVASC) 5 mg tablet amlodipine 5 mg tablet 0 08/22/2020 10/31/2022 Discontinued (Other) Problems Active Problems Problem Classification Problem Date Documented Date Episodic/Chronic Cardiac dysrhythmias (6 sources) Paroxysmal atrial fibrillation; Translations: [Ventricular premature depolarization] Onset: 10-30-2022 Chronic Cardiac dysrhythmias (3 sources) Palpitations; Translations: [Palpitations] Onset: 10-30-2022 Episodic Diabetes mellitus without complication (1 source) Type 2 diabetes mellitus; Translations: [Type 2 diabetes mellitus without complications] Onset: 08-20-2016 10-31-2022 Chronic Disorders of lipid metabolism (1 source) Hyperlipidemia; Translations: [Hyperlipidemia, unspecified] Onset: 08-20-2016 10-31-2022 Chronic Esophageal disorders (1 source) Gastroesophageal reflux disease; Translations: [Gastro-esophageal reflux disease without esophagitis] Onset: 10-31-2022 10-31-2022 Chronic Essential hypertension (1 source) Essential hypertension; Translations: [Essential (primary) hypertension] Onset: 09-02-2019 10-31-2022 Chronic Nutritional deficiencies (1 source) Vitamin D deficiency; Translations: [Vitamin D deficiency, unspecified] Onset: 08-20-2016 10-31-2022 Chronic Other aftercare (1 source) emt intermediate (current) use of anticoagulants; Translations: [Anticoagulant long-term use] Onset: 10-30-2022 Episodic Other aftercare (2 sources) Long-term current use of anticoagulant; Translations: [emt intermediate (current) use of anticoagulants] Onset: 10-30-2022 Episodic Other nutritional; endocrine; and metabolic disorders (1 source) Obesity; Translations: [Obesity, unspecified] Onset: 09-02-2019 10-31-2022 Chronic Residual codes; unclassified (1 source) Obstructive sleep apnea (adult) (pediatric); Translations: [Obstructive sleep apnea] Onset: 10-30-2022 Chronic Residual codes; unclassified (2 sources) Obstructive sleep apnea syndrome; Translations: [Obstructive sleep apnea (adult) (pediatric)] Onset: 10-30-2022 Chronic Residual codes; unclassified (3 sources) Other specified personal risk factors, not elsewhere classified; Translations: [Other specified personal history presenting hazards to health] Onset: 10-30-2022 Episodic Past or Other Problems Problem Classification Problem Date Documented Da te Episodic/Chronic Malaise and fatigue (1 source) Fatigue; Translations: [Other fatigue] Onset: 09-02-2019 10-31-2022 Episodic Results Test Name Value Interpretation Reference Range Facil ity Vital Signs Date Time Vital Sign Value Performing Clinician Amilcar brennan 10-31-2022 14:18-0500 Body height 180.3 cm Narciso Herndon MD Work Phone: [facility] 10-31-2022 14:18-0500 Body weight 110.22 kg Narciso Herndon MD Work Phone: [facility] 10-31-2022 14:18-0500 Diastolic blood pressure 75 mm[Hg] Narciso Herndon MD Work Phone: [facility] 10-31-2022 14:18-0500 Heart rate 70 /min Narciso Herndon MD Work Phone: [facility] 10-31-2022 14:18-0500 SaO2% (BldA) [Mass fraction] 98 % Narciso Herndon MD Work Phone: [facility] 10-31-2022 14:18-0500 Systolic blood pressure 112 mm[Hg] Narciso Herndon MD Work Phone: [facility] Encounters Encounter Date Encounter Type Care Provider Facility Start: 10-31-2022 End: 10-31-2022 ambulatory NARCISO HERNDON Facility:[facility] Start: 10-31-2022 End: 10-31-2022 Patient encounter procedure Narciso Herndon MD Work Phone: [facility] Procedures Date Procedure Procedure Detail Performing Clinician Start: 10-31-2022 Ecg routine ecg w/le ast 12 lds w/i&r Narciso Herndon MD Work Phone: Plan of Treatment Date Care Activity Detail Author Start: 10-31-2023 BP CONTROLLED (<130/80) BP CONTROLLE D (<130/80) [facility] Start: 07-04-2022 Influenza vaccination INFLUENZA (#1) [facility] Start: 11-03-2021 DEPRESSION ASSESSMENT DEPRESSION ASS ESSMENT [facility] Start: 2021 COLOGUARD (FIT-DNA) COLOGUARD (FIT-D NA) [facility] Start: 2021 Colonoscopy COLONOSCOPY [facility] Start: 2021 COLORECTAL CANCER SCREENING COLORECTAL CANCER SCREENING [facility] Start: [address] COLONOGRAPHY [facility] Start: 2021 DIABETES SCREEN DIABETES SCREEN [facility] Start: 2021 FECAL OCCULT BLOOD FECAL OCCULT BLOO D [facility] Start: 2021 SIGMOIDOSCOPY SIGMOIDOSCOPY [facility] Start: 2011 LIPID SCREEN LIPID SCREEN [facility] Start: 1995 Urine microalbumin profile DTAP,TDAP ,TD (1 - Tdap) [facility] Start: 1994 ANNUAL PCP TEAM CENTRAL SERVICE SUPPLY DISTRIBUTOR SPIKE DISEASE VISIT ANNUAL PCP TEAM CHRONIC DISEASE VISIT [facility] Start: 1994 Hepatitis B surface antibody level LDL CHOLESTEROL [facility] Start: 1994 HEPATITIS C SCREENING HEPATITIS C SC REENING [facility] Start: 1994 HIV SCREENING HIV SCREENING [facility] Start: 1986 3 comp foot exam completed DIABETIC FOOT EXAM [facility] Start: 1986 Hepatitis B screening URINE AL BUMIN:CREATININE RATIO [facility] Start: 1986 Hepatitis C antibody , confirmatory test DILATED RETINAL EXAM [facility] Start: 1982 PNEUMOCOCCAL (1 - PCV) PNEUMOCOCCAL (1 - PCV) [facility] Start: 1981 Hemoglobin A1c/Hemoglobin.total in Blood HBA1C [facility] Start: 1976 COVID-19 VACCINE (#1) COVID-19 VACCI NE (#1) [facility] Start: 1976 HEPATITIS B (1 of 3 - 3-dose series) HEPATITIS B (1 of 3 - 3-dose series) [facility] Payers Date Payer Category Payer Unknown MMO MMO [employer] [id number] 2022-Present [phone] [address] [place] [address] PPO [id number] 2022 Unknown [id number] Social History Date Type Detail Facility Start: 10-24-2022 [facility] Start: 11-03-2011 End: 03-18-2022 History of tobacco use Cigarette Smoker [facility] Start: 10-24-2022 End: 10-31-2022 Tobacco use and exposure Smokeless tobacco non-user [facility] Start: 10-24-2022 Alcohol intake Current drinke r of alcohol (finding) [facility] Start: 10-24-2022 Alcohol Comment a few times a month.Previous heavy alcohol use. [facility] Start: 1976 Sex Assigned At Not on file [facility] Start: 10-31-2022 [facility] Work Phone: Start: 11-03-2011 End: 03-18-2022 History of tobacco use Current smoker [facility] Work Phone: Start: 10-31-2022 Cigarettes smoked current (pack per day) - Reported 0.5 [facility] Start: 10-31-2022 Alcohol intake Ex-drinker (finding) [facility] Progress note 10-31-2022 Note Date & Type Note Facility 10-31-2022 Note HNO ID: [id number] Author: Narciso Herndon MD Service: ? Author Type: Physician Type: Progress Notes Filed: 10/31/2022 6:50 PM Note Text: PRIMARY CARE PHYSICIAN: Can Monzon [address] [facility] [address] [address] [place] [address] REFERRING PHYSICIAN: Yared Whipple MD ([facility]) [address] [facility] [address] Patient Care Team: Can Monzon DO as PCP - General (Family Medicine) Yared Whipple as Specialty Airport Control Operator (Cardiology) Narciso Olivo V as Specialty Airport Control Operator (Internal Medicine) CHIEF COMPLAINT: Evaluation for arrhythmia HISTORY OF PRESENT ILLNESS: Mr. Wilcox is a 47 year old male who presents today for evaluation of symptomatic arrhythmia, including atrial fibrillation. He has a history of hypertension, hyperlipidemia, type 2 diabetes mellitus. He also has sleep apnea, has been treated with BiPAP since about June 2022. He states in March 2022 he woke up experiencing palpitations and skipping beats. He presented to [place] [facility], was found to be in atrial fibrillation, hospitalized. He states the atrial fibrillation spontaneously converted back to sinus rhythm after a total of about 8 hours. He underwent cardiac testing including an echocardiogram and a cardiac stress test that were both unremarkable. He was treated with diltiazem and oral anticoagulation therapy with Eliquis. He states he has not been aware of recurrence of the atrial fibrillation. He did have a couple of months starting in about late July through late September where he experienced frequent skipped beats and these would occur all day, every day. This resolved with time and also an increase in the dosage of the metoprolol medication. Metoprolol had been added to his regimen in about June 2022. He states he has had a lot of changes to his lifestyle over the past year. Prior to the March 2022 hospitalization, he had been drinking alcohol heavily, about 6-8 beers per day, and also some whiskey, and he was also smoking. He was an active, not exercising regularly, was overweight. He quit smoking and drinking alcohol, and he has been exercising, eating right and losing weight. He states he has lost about 20 pounds so far. He feels better and most recently has not been experiencing palpitations or other symptoms on the current medication regimen. He states amlodipine (Norvasc) was discontinued due to leg edema, and this problem has been improved. I have confirmed and edited as necessary, the PFSH and ROS obtained by others. PAST MEDICAL HISTORY Diagnosis Date Anticoagulant long-term use indication: stroke prevention atrial fibrillation At risk for stroke [id number] = 2 (HTN, DM) Congenital hypertrophic pyloric stenosis Diabetes mellitus (HCC) Diabetes mellitus, type II (HCC) 08/20/2016 Last Assessment AND Plan: Monitor blood sugars, check hemoglobin A1c and microalbumin in the near future Continue metformin and Glucotrol Essential hypertension GERD (gastroesophageal reflux disease) Hyperlipidemia 08/20/2016 Last Assessment AND Plan: Continue atorvastatin 40 mg daily Diet , exercise and weight loss Lipid panel yearly Mixed hyperlipidemia Obesity 09/02/2019 Obstructive sleep apnea bi-PAP therapy since about 06/2022 Palpitations Paroxysmal atrial fibrillation (HCC) diagnosed about 03/2022 PVC (premature ventricular contraction) Smoker quit smoking 03/18/2022 PAST SURGICAL HISTORY Procedure Laterality Date ECHOCARDIOGRAM 03/08/2022 see scanned documents; [facility] STRESS TEST EXERCISE-NUCLEAR 03/19/2022 see scanned documents; [facility] TONSILLECTOMY AND ADENOIDECTOMY UNLISTED STOMACH SURGERY 1975 probably for pyloric stenosis SOCIAL HISTORY Social History Tobacco Use Smoking status: Former Packs/day: 0.50 Years: 10.00 Pack years: 5.00 Types: Cigarettes Start date: 2011 Quit date: 03/18/2022 Years since quittin.6 Smokeless tobacco: Never Substance Use Topics Alcohol use: Not Currently Comment: a few times a month.Previous heavy alcohol use. Drug use: Never FAMILY HISTORY Problem Relation Age of Onset Arthritis Mother Heart disease Mother Coronary Artery Disease Mother had coronary stent(s) Coronary Artery Disease Father CAD, coronary stents, CABG Heart disease Father Hypertension Father ALLERGIES: ALLERGIES No Known Allergies MEDICATIONS: metoprolol succinate ER (TOPROL XL) 50 mg 24 hr tablet Take 50 mg by mouth twice daily. dilTIAZem CD (CARDIZEM CD, CARTIA XT) 120 mg 24 hr capsule Take 120 mg by mouth once daily. atorvastatin (LIPITOR) 40 mg tablet Take 40 mg by mouth once daily. losartan-hydroCHLOROthiazide (HYZAAR) 100-12.5 mg per tablet Take 0.5 tablets by mouth once daily. metFORMIN (GLU (more content not included)... [facility] History of Present illness Narrative 10-31-2022 Narciso Herndon MD - 10/31/2022 2:20 PM EST Note Date & Type Note Facility 10-31-2022 History of Presen t illness Narrative PRIMARY CARE PHYSICIAN: Can Monzon [address] [place] [address] REFERRING PHYSICIAN: Yared Whipple MD ([facility]) [address] [facility] [address] [facility] [address] Patient Care Team: Can Monzon DO as PCP - General (Family Medicine) Yared Whipple as Specialty Airport Control Operator (Cardiology) Narciso Olivo V as Specialty Airport Control Operator (Internal Medicine) CHIEF COMPLAINT: Evaluation for arrhythmia HISTORY OF PRESENT ILLNESS: Mr. Wilcox is a 47 year old male who presents today for evaluation of symptomatic arrhythmia, including atrial fibrillation. He has a history of hypertension, hyperlipidemia, type 2 diabetes mellitus. He also has sleep apnea, has been treated with BiPAP since about June 2022. He states in March 2022 he woke up experiencing palpitations and skipping beats. He presented to [place] [facility], was found to be in atrial fibrillation, hospitalized. He states the atrial fibrillation spontaneously converted back to sinus rhythm after a total of about 8 hours. He underwent cardiac testing including an echocardiogram and a cardiac stress test that were both unremarkable. He was treated with diltiazem and oral anticoagulation therapy with Eliquis. He states he has not been aware of recurrence of the atrial fibrillation. He did have a couple of months starting in about late July through late September where he experienced frequent skipped beats and these would occur all day, every day. This resolved with time and also an increase in the dosage of the metoprolol medication. Metoprolol had been added to his regimen in about June 2022. He states he has had a lot of changes to his lifestyle over the past year. Prior to the March 2022 hospitalization, he had been drinking alcohol heavily, about 6-8 beers per day, and also some whiskey, and he was also smoking. He was an active, not exercising regularly, was overweight. He quit smoking and drinking alcohol, and he has been exercising, eating right and losing weight. He states he has lost about 20 pounds so far. He feels better and most recently has not been experiencing palpitations or other symptoms on the current medication regimen. He states amlodipine (Norvasc) was discontinued due to leg edema, and this problem has been improved. I have confirmed and edited as necessary, the PFSH and ROS obtained by others. PAST MEDICAL HISTORY Diagnosis Date Anticoagulant long-term use indication: stroke prevention atrial fibrillation At risk for stroke [id number] = 2 (HTN, DM) Congenital hypertrophic pyloric stenosis Diabetes mellitus (HCC) Diabetes mellitus, type II (HCC) 08/20/2016 Last Assessment & Plan: Monitor blood sugars, check hemoglobin A1c and microalbumin in the near future Continue metformin and Glucotrol Essential hypertension GERD (gastroesophageal reflux disease) Hyperlipidemia 08/20/2016 Last Assessment & Plan: Continue atorvastatin 40 mg daily Diet , exercise and weight loss Lipid panel yearly Mixed hyperlipidemia Obesity 09/02/2019 Obstructive sleep apnea bi-PAP therapy since about 06/2022 Palpitations Paroxysmal atrial fibrillation (HCC) diagnosed about 03/2022 PVC (premature ventricular contraction) Smoker quit smoking 03/18/2022 PAST SURGICAL HISTORY Procedure Laterality Date ECHOCARDIOGRAM 03/08/2022 see scanned documents; [facility] STRESS TEST EXERCISE-NUCLEAR 03/19/2022 see scanned documents; [facility] TONSILLECTOMY & ADENOIDECTOMY <AGE 13 1979 UNLISTED STOMACH SURGERY 1975 probably for pyloric stenosis SOCIAL HISTORY Social History Tobacco Use Smoking status: Former Packs/day: 0.50 Years: 10.00 Pack years: 5.00 Types: Cigarettes Start date: 2011 Quit date: 03/18/2022 Years since quittin.6 Smokeless tobacco: Never Substance Use Topics Alcohol use: Not Currently Comment: a few times a month.Previous heavy alcohol use. Drug use: Never FAMILY HISTORY Problem Relation Age of Onset Arthritis Mother Heart disease Mother Coronary Artery Disease Mother had coronary stent(s) Coronary Artery Disease Father CAD, coronary stents, CABG Heart disease Father Hypertension Father ALLERGIES: ALLERGIES No Known Allergies MEDICATIONS: metoprolol succinate ER (TOPROL XL) 50 mg 24 hr tablet Take 50 mg by mouth twice daily. dilTIAZem CD (CARDIZEM CD, CARTIA XT) 120 mg 24 hr capsule Take 120 mg by mouth once daily. atorvastatin (LIPITOR) 40 mg tablet Take 40 mg by mouth once daily. losartan-hydroCHLOROthiazide (HYZAAR) 100-12.5 mg per tablet Take 0.5 tablets by mouth once daily. metFORMIN (GLUCOPHAGE) 1,000 mg tablet Take 1,000 mg by mouth twice daily with meals. pioglitazone (ACTOS) 30 mg tablet Take 30 mg by mouth once daily. apixaban (ELIQUIS) 5 mg tab(s) Take 5 mg by mouth twice daily. dulaglutide (TRULICITY) 0.75 mg/0.5 mL pen injector Inject 0.75 mg subcutaneously one time a week. REVIEW OF SYSTEMS: Review of Systems Constitutional: Positive for weight loss (Intentional). Negative for chills, fever and malaise/fatigue. Respiratory: Negative for cough, hemoptysis, sputum production and shortness of breath. Cardiovascular: Positive for palpitations (much less since late September when metoprolol dose increased). Negative for chest pain, orthopnea, leg swelling and PND. Gastrointestinal: Negative for abdominal pain, blood in stool, melena, nausea and vomiting. Genitourinary: Negative for hematuria. Skin: Negative for rash. Neurological: Negative for dizziness and loss of consciousness. PHYSICAL EXAMINATION: BP 112/75 Pulse 70 Ht 5' 11 (1.80m) Wt 243 lb (110.2kg) SpO2 98% BMI 33.91 kg/(m^2). Physical Exam Vitals reviewed. Constitutional: General: He is not in acute distress. Appearance: Normal appearance. HENT: Head: Normocephalic and atraumatic. Cardiovascular: Rate and Rhythm: Normal rate and regular rhythm. Heart sounds: Normal heart sounds, S1 normal and S2 normal. No murmur heard. No friction rub. Pulmonary: Effort: Pulmonary effort is normal. No respiratory distress. Breath sounds: Normal breath sounds. No wheezing, rhonchi or rales. Abdominal: General: Bowel sounds are normal. Palpations: Abdomen is soft. Tenderness: There is no abdominal tenderness. Musculoskeletal: Cervical back: Neck supple. Right lower leg: No edema. Left lower leg: No edema. Skin: General: Skin is warm and dry. Neurological: General: No focal deficit present. Mental Status: He is alert and oriented to person, place, and time. Psychiatric: Mood and Affect: Mood normal. Behavior: Behavior normal. Thought Content: Thought content normal. CARDIOVASCULAR MEDICINE TESTING: Electrocardiogram: Sinus rhythm 65 bpm; normal conduction intervals (SD 180 ms, QRS 92 ms); QTc 405 ms I have personally reviewed the Electrocardiogram. ASSESSMENT/PLAN: 1. Palpitations - ICD9: 785.1, ICD10: R00.2 (primary diagnosis) See below, this is not much of an issue right now 2. Paroxysmal atrial fibrillation (HCC) - ICD9: 427.31, ICD10: I48.0 Diagnosed 03/2022; possibly precipitated by lifestyle issues including alcohol abuse, tobacco use, obesity, sleep apnea. I provided encouragement for his efforts for weight loss, as this can have substantial reduction for the occurrence of atrial arrhythmias. In fact he has done well more recently most likely due to all of the lifestyle changes he has made (smoking cessation, abstinence from alcohol, weight loss, sleep apnea treatment). At this point I would not recommend advanced atrial fibrillation treatment strategy such as antiarrhythmic drug therapy or catheter ablation as he is doing well with lifestyle changes and a beta-rachel and calcium channel rachel. We could consider eliminating the diltiazem at some point if he continues to do well, would prefer he remain on optimal dosages of the metoprolol. If he has recurrent atrial fibrillation despite these measures, we can consider antiarrhythmic drug therapy vs catheter ablation ---- he would be excellent candidate for catheter ablation particularly in light of his relatively young age. 3. PVC (premature ventricular contraction) - ICD9: 427.69, ICD10: I49.3 Not much of an issue at this point; these are almost certainly benign in the absence of structural heart disease 4. At risk for stroke - ICD9: V15.89, ICD10: Z91.89 CHADS2-Vasc Score Breakdown 2 Total Score 1 History of hypertension 1 History of diabetes mellitus 5. Anticoagulant long-term use - ICD9: V58.61, ICD10: Z79.01 Indication: stroke prevention atrial fibrillation; I did discuss with Mr. Wilcox that the decision regarding oral anticoagulation therapy for stroke prevention is based primarily on degree of risk and not on the perceived frequency/duration of the atrial fibrillation. Given the elevated risk score of two points, most likely we will recommend oral anticoagulation therapy for stroke prevention from atrial fibrillation indefinitely 6. Obstructive sleep apnea - ICD9: 327.23, ICD10: G47.33 States compliance with prescribed BiPAP therapy since about June 2022; encouraged compliance with this therapy, as untreated sleep apnea can substantially contribute to recurrence of atrial arrhythmias IMPRESSION: Mr. Wilcox has been experiencing arrhythmia as outlined above. See the assessment/plan section for my comments. I think at this point he should continue with the current treatment regimen, consider in the near future whether he needs diltiazem and the beta-rachel. If we eliminate one of these I would favor probably eliminating the diltiazem and continuing the beta-rachel. For now he is doing well with the combination so we can continue that at least in the short-term. I did congratulate him on his lifestyle changes, he has made several changes that are often quite challenging for people to make and carry through, such as quitting alcohol and tobacco, losing weight, using CPAP or bi-PAP for sleep apnea, and such. For now I do not recommend antiarrhythmic drug therapy or catheter ablation. I reassured him about the PVCs, he should not be concerned about them. I had a detailed discussion with Mr. Wilcox regarding my evaluation and recommendations. After our discussion, Mr. Wilcox expressed his understanding and I answered all his questions to his apparent satisfaction. PLAN AND RECOMMENDATIONS: Continue with current plan of care from EP standpoint. He will follow up with his [facility] team, and I am happy to see him back in the future if the need arises. Narciso Herndon MD 10/31/2022 Medical Decision Making: Problems: Moderate: New problem with uncertain prognosis Data: Unique source(s) for external note(s) reviewed: 3+ Unique test result(s) reviewed: 3+ Unique test(s) ordered: 1 Risk: Moderate: Moderate risk from testing/treatment, Drug management and Decision on minor surgery w/ risk factors Medical Decision Making Level: 4 - Moderate documented in this encounter [facility] Evaluation note Note Date & Type Note Facility documented in this encounter [facility] Summary Purpose Family History No Family History Records Found Advance Directives No Advanced Directives Records Found Additional Source Comments Source Comments (unrecognize d section and content) In the event this informatio n is protected by the Federal Confidentiality of Alcohol and Drug Abuse Patient Records regulations: The Federal rules restrict any use of the information to criminally investigate or prosecute any alcohol or drug abuse patient.[facility] the event this information is protected by the Federal Confidentiality of Alcohol and Drug Abuse Patient Records regulations: The Federal rules restrict any use of the information to criminally investigate or prosecute any alcohol or drug abuse patient.[facility] (unrecognized sect ion and content) No Status Records Found INFORMATION SOURCE (unrecogn ized section and content) Reason for Visit (unrecogniz ed section and content) Care Teams (unrecognized sec tion and content) FOR RECORDS PERTAINING TO PATIENTS WHO ARE OR HAVE BEEN ENROLLED IN A CHEMICAL DEPENDENCY/SUBSTANCEABUSE PROGRAM, SOME INFORMATION MAY BE OMITTED. This clinical summary was aggregated from multiple sources. Caution should be exercised in using it in the provision of clinical care. This summary normalizes information from multiple sources, and as a consequence, information in this document may materially change the coding, format and clinical context of patient data. In addition, data may be omitted in some cases. CLINICAL DECISIONS SHOULD BE BASED ON THE PRIMARY CLINICAL RECORDS. [employer] [facility]. provides no warranty or guarantee of the accuracy or completeness of information in this document.
[2023-12-11 13:25] LABS: ALB/GLOB Ratio 1.1 RATIO (0.9-2.4); AST(SGOT) 10 U/L (15-37); Alanine Aminotransfer ALT/SGPT 22 U/L (16-61); Albumin, Serum 3.9 g/dL (3.2-5.0); Alkaline Phosphatase 86 U/L (45-117); Anion Gap 7 (5-15); BUN 11 mg/dL (7-18); BUN/Creat Ratio 15.1 RATIO (10-20); Calcium,Total 9.7 mg/dL (8.5-10.1); Chloride 104 mmol/L (98-107); Cholesterol 164 mg/dL (200); Creatinine, Serum 0.73 mg/dL (0.70-1.30); EST Glomerular Filtration Rate 123 mL/min (>60); Est Glom Filt Rate - Afr Amer 149 mL/min (>60); Globulin 3.7 g/dL (2.2-4.2); Glucose 184 mg/dL (74-106); High Density Lipoprotein 35 mg/dL; Potassium 4.2 mmol/L (3.5-5.1); Protein, Total 7.6 g/dL (6.4-8.2); Sodium Level 136 mmol/L (136-145); Triglycerides 337 mg/dL; Very Low Density Lipoprotein 67 mg/dL (5-40)
== END | disposition home or self-care (01) ==
LOC: BIMLAB 08:17
PROVIDERS: PCP Internal Medicine; Visit Provider Internal Medicine
DX: E11.9 Type 2 diabetes mellitus without complications (principal); E78.5 Hyperlipidemia, unspecified
CPT/HCPCS: 36415; 80053; 80061

== ENCOUNTER → 2023-12-29 | Outpatient (CLI) | payer MEDICAID, SELFPAY ==
[2023-12-29 13:30] LABS: PSA,Total - Annual Screen 0.47 ng/mL (0.00-4.00)
--- OUTSIDE RECORDS SUMMARY | 2023-12-29 18:10 | XMS RPT_ITS | CCD ---
Author Name Unknown Address [address] [place] [address] Organization [facility] Care Team Providers Care Jai Alai Player Name Role Phone Unavailable Primary Care Provider UnavailNARCISO Carroll Attending Unavailable YARED WHIPPLE Referring Unavailable CAN MONZON Primary Care Unavailable Yared Whipple Unavailable Narciso Correia Unavailable Can Monzon DO Primary Care Provider [phone] Yared Whipple MD Unavailable [phone] Narciso Correia Unavailable Merrick Torres MD Primary Care Provider [phone] MERRICK TORRES Primary Care Unavailable Medications Current Medications Medication Drug Class(es) Dates Sig (Normalized) Sig (Original) cephalexin 500 mg oral capsule (1 source) Cephalosporin Antibacterial Start: 12-21-2023 End: 12-26-2023 take 1 capsule by mouth four times daily cephALEXin (KEFLEX) 500 mg capsule Take 1 capsule by mouth four times daily for 5 days. 20 capsule 0 12/21/2023 12/26/2023 Active Completed/Discontinued Medications Medication Drug Class(es) Dates Sig (Normalized) Sig (Original) amLODIPine 5 mg oral tablet (1 source) Dihydropyridine Calcium Channel Rachel Start: 08-22-2020 End: 10-31-2022 amLODIPine (NORVASC) 5 mg tablet amlodipine 5 mg tablet 0 08/22/2020 10/31/2022 Discontinued (Other) Problems Active Problems Problem Classification Problem Date Documented Date Episodic/Chronic Cardiac dysrhythmias (8 sources) Paroxysmal atrial fibrillation; Translations: [Ventricular premature depolarization] Onset: 10-30-2022 Chronic Cardiac dysrhythmias (4 sources) Palpitations; Translations: [Palpitations] Onset: 10-30-2022 Episodic Diabetes mellitus without complication (2 sources) Type 2 diabetes mellitus; Translations: [Type 2 diabetes mellitus without complications] Onset: 08-20-2016 10-31-2022 Chronic Disorders of lipid metabolism (2 sources) Hyperlipidemia; Translations: [Hyperlipidemia, unspecified] Onset: 08-20-2016 10-31-2022 Chronic Esophageal disorders (2 sources) Gastroesophageal reflux disease; Translations: [Gastro-esophageal reflux disease without esophagitis] Onset: 10-31-2022 10-31-2022 Chronic Essential hypertension (2 sources) Essential hypertension; Translations: [Essential (primary) hypertension] Onset: 09-02-2019 10-31-2022 Chronic Nutritional deficiencies (2 sources) Vitamin D deficiency; Translations: [Vitamin D deficiency, unspecified] Onset: 08-20-2016 10-31-2022 Chronic Other aftercare (1 source) USP (current) use of anticoagulants; Translations: [Anticoagulant long-term use] Onset: 10-30-2022 Episodic Other nutritional; endocrine; and metabolic disorders (2 sources) Obesity; Translations: [Obesity, unspecified] Onset: 09-02-2019 10-31-2022 Chronic Other skin disorders (1 source) Infection of toenail; Translations: [Ingrowing nail] 12-21-2023 Episodic Residual codes; unclassified (1 source) Obstructive sleep apnea (adult) (pediatric); Translations: [Obstructive sleep apnea] Onset: 10-30-2022 Chronic Residual codes; unclassified (3 sources) Obstructive sleep apnea syndrome; Translations: [Obstructive sleep apnea (adult) (pediatric)] Onset: 10-30-2022 Chronic Past or Other Problems Problem Classification Problem Date Documented Da te Episodic/Chronic Malaise and fatigue (2 sources) Fatigue; Translations: [Other fatigue] Onset: 09-02-2019 10-31-2022 Episodic Other aftercare (3 sources) Long-term current use of anticoagulant; 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] Onset: 10-30-2022 Episodic Residual codes; unclassified (4 sources) Other specified personal risk factors, not elsewhere classified; Translations: [Other specified personal history presenting hazards to health] Onset: 10-30-2022 Episodic Results Test Name Value Interpretation Reference Range Facil ity Vital Signs Date Time Vital Sign Value Performing Clinician Amilcar brennan 12-21-2023 09:54-0500 Body temperature 96.91 [degF] Krislyn Aberegg PA Work Phone: [facility] 12-21-2023 09:54-0500 Body weight 116.57 kg Krislyn Aberegg PA Work Phone: [facility] 12-21-2023 09:54-0500 Diastolic blood pressure 72 mm[Hg] Krislyn Aberegg PA Work Phone: [facility] 12-21-2023 09:54-0500 Heart rate 76 /min Krislyn Aberegg PA Work Phone: [facility] 12-21-2023 09:54-0500 Respiratory rate 16 /min Krislyn Aberegg PA Work Phone: [facility] 12-21-2023 09:54-0500 SaO2% (BldA) [Mass fraction] 97 % Krislyn Aberegg PA Work Phone: [facility] 12-21-2023 09:54-0500 Systolic blood pressure 122 mm[Hg] Krislyn Aberegg PA Work Phone: [facility] 10-31-2022 14:18-0500 Body height 180.3 cm Narciso Munoz MD Work Phone: [facility] 10-31-2022 14:18-0500 Body weight 110.22 kg Narciso Munoz MD Work Phone: [facility] 10-31-2022 14:18-0500 Diastolic blood pressure 75 mm[Hg] Narciso Munoz MD Work Phone: [facility] 10-31-2022 14:18-0500 Heart rate 70 /min Narciso Munoz MD Work Phone: [facility] 10-31-2022 14:18-0500 SaO2% (BldA) [Mass fraction] 98 % Narciso Munoz MD Work Phone: [facility] 10-31-2022 14:18-0500 Systolic blood pressure 112 mm[Hg] Narciso Munoz MD Work Phone: [facility] Encounters Encounter Date Encounter Type Care Provider Facility Start: 12-21-2023 End: 12-21-2023 ambulatory MERRICK G LUKE Facility:[facility] Start: 12-21-2023 End: 12-21-2023 Patient encounter procedure Nasim MCKEON Work Phone: [facility] Procedures Date Procedure Procedure Detail Performing Clinician Start: 10-31-2022 Ecg routine ecg w/le ast 12 lds w/i&r Narciso Munoz MD Work Phone: Plan of Treatment Date Care Activity Detail Author Start: 12-21-2024 BP Controlled (<130/80) BP Controlle d (<130/80) [facility] Start: 11-03-2023 [facility] Start: 10-31-2023 BP CONTROLLED (<130/80) BP CONTROLLE D (<130/80) [facility] Start: 07-04-2023 Influenza vaccination Influenza Vacc ine (#1) [facility] Start: 07-04-2022 Influenza vaccination INFLUENZA (#1) [facility] Start: 11-03-2021 DEPRESSION ASSESSMENT DEPRESSION ASS ESSMENT [facility] Start: 2021 COLOGUARD (FIT-DNA) COLOGUARD (FIT-D NA) [facility] Start: 2021 Colonoscopy COLONOSCOPY [facility] Start: 2021 COLORECTAL CANCER SCREENING COLORECTAL CANCER SCREENING [facility] Start: [address] COLONOGRAPHY [facility] Start: 2021 DIABETES SCREEN DIABETES SCREEN [facility] Start: 2021 FECAL OCCULT BLOOD FECAL OCCULT BLOO D [facility] Start: 2021 Screening for malign ant neoplasm of colon [facility] Start: 2021 SIGMOIDOSCOPY SIGMOIDOSCOPY [facility] Start: 2011 LIPID SCREEN LIPID SCREEN [facility] Start: 1995 Urine microalbumin profile [facility] Start: 1994 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 SPIKE DISEASE VISIT ANNUAL PCP TEAM CHRONIC DISEASE VISIT [facility] Start: 1994 Hepatitis B surface antibody level LDL CHOLESTEROL [facility] Start: 1994 HEPATITIS [facility] Start: 1994 Hepatitis C screening Hepatitis C [facility] Start: 1994 HIV SCREENING HIV SCREENING [facility] Start: 1994 HIV screening HIV Screening [facility] Start: 1986 3 comp foot exam completed DIABETIC FOOT EXAM [facility] Start: 1986 Diabetic foot examination Diabetic F oot Exam [facility] Start: 1986 Glaucoma screening Dilated Retinal E xam [facility] Start: 1986 Hepatitis B screening URINE AL BUMIN:CREATININE RATIO [facility] Start: 1986 Hepatitis C antibody , confirmatory test DILATED RETINAL EXAM [facility] Start: 1982 PNEUMOCOCCAL (1 - PCV) PNEUMOCOCCAL (1 - PCV) [facility] Start: 1982 Pneumococcal vaccination Pneum ococcal Vaccine (1 of 2 - PCV) [facility] Start: 1981 Hemoglobin A1c measurement HbA1C [facility] Start: 1981 Hemoglobin A1c/Hemoglobin.total in Blood HBA1C [facility] Start: 1976 COVID-19 VACCINE (#1) COVID-19 VACCI NE (#1) [facility] Start: 1976 HEPATITIS B (1 of 3 - 3-dose series) HEPATITIS B (1 of 3 - 3-dose series) [facility] Start: 1976 Hepatitis B Vaccine (1 of 3 - 3-dose series) Hepatitis B Vaccine (1 of 3 - 3-dose series) [facility] Payers Date Payer Category Payer Unknown [id number] 2022 Unknown [id number] 2022 Unknown [id number] Social History Date Type Detail Facility Start: 10-24-2022 [facility] Start: 11-03-2011 End: 03-18-2022 History of tobacco use Cigarette Smoker [facility] Start: 10-24-2022 End: 10-31-2022 Tobacco use and exposure Smokeless tobacco non-user [facility] Start: 10-24-2022 Alcohol intake Current drinke r of alcohol (finding) [facility] Start: 10-24-2022 Alcohol Comment a few times a month.Previous heavy alcohol use. [facility] Start: 1976 Sex Assigned At Not on file C [facility] Start: 10-31-2022 Tobacco smoking stat [facility] Ex-smoker [facility] Work Phone: Start: 11-03-2011 End: 03-18-2022 History of tobacco use Current smoker [facility] Work Phone: Start: 10-31-2022 End: 12-21-2023 Cigarettes smoked current (pack per day) - Reported 0.5 [facility] Start: 10-31-2022 End: 12-21-2023 Alcohol intake Ex-drinker (finding) [facility] Start: 12-21-2023 Tobacco use panel [facility] Progress note 12-21-2023 Note Date & Type Note Facility 12-21-2023 Note HNO ID: [id number] Author: NASIM ANTHONY PA Service: ? Author Type: Physician Vest Finisher Type: Progress Notes Filed: 12/21/2023 10:01 Note Text: This note was created using Say2meriter. Subjective Reny Beverly Jr. is a 48 year old male. HPI 48-year-old male presents for left great toe redness, swelling and pain. Patient states that he has an ingrown toenail. He got it clipped by podiatry and is scheduled Friday to have the toenail removed. He states that he went bowling on Friday and thinks that his shoe irritated his toe. He states that Friday his toe was swollen and red. It is tender to touch around the toenail. He has not noticed any drainage. He has been doing warm soaks. No fevers. He is a type II diabetic. States his sugars have been good. PAST MEDICAL HISTORY Diagnosis Date Anticoagulant long-term use indication: stroke prevention atrial fibrillation At risk for stroke [id number] = 2 (HTN, DM) Congenital hypertrophic pyloric [...] Laterality Date ECHOCARDIOGRAM 03/08/2022 see scanned documents; [facility] STRESS TEST EXERCISE-NUCLEAR 03/19/2022 see scanned documents; [facility] TONSILLECTOMY AND ADENOIDECTOMY UNLISTED STOMACH SURGERY 1975 probably for pyloric stenosis ALLERGIES Patient has no known allergies. MEDICATIONS metoprolol succinate ER (TOPROL XL) 50 mg [...] 0.75 mg subcutaneously one time a week. cephALEXin (KEFLEX) 500 mg capsule Take 1 capsule by mouth four times daily for 5 days. FAMILY HISTORY Problem Relation Age of Onset Arthritis Mother Heart disease Mother Coronary Artery Disease Mother had coronary stent(s) Coronary Artery Disease Father CAD, coronary stents, CABG Heart disease Father Hypertension Father Social History Tobacco Use Smoking status: Former Packs/day: 0.50 Years: 10.00 Additional pack years: 0.00 Total pack years: 5.00 Types: Cigarettes Start date: 2011 Quit date: 03/18/2022 Years since quittin.7 Smokeless tobacco: Never Substance Use Topics Alcohol use: Not Currently Comment: a few times a month.Previous heavy alcohol use. Drug use: Never Review of Systems Constitutional: Negative for chills and fever. HENT: Negative for congestion and sore throat. Respiratory: Negative for cough and shortness of breath. Gastrointestinal: Negative for diarrhea and vomiting. Skin: Positive for color change. Objective BP 122/72 Pulse 76 Temp 36.1 ?C (96.9 ?F) Resp 16 Wt 116.6 kg (257 lb) SpO2 97% BMI 35.84 kg/m? Physical Exam Vitals and nursing note reviewed. Constitutional: General: He is not in acute distress. Appearance: Normal appearance. He is not toxic-appearing. Cardiovascular: Rate and Rhythm: Normal rate and regular rhythm. Pulmonary: Effort: Pulmonary effort is normal. Breath sounds: Normal breath sounds. Feet: Left foot: Skin integrity: Erythema present. Toenail Condition: Left toenails are ingrown. Comments: Left great toenail is ingrown medially and laterally. He has erythema and swelling surrounding the left great toenail. No lymphatic streaking. No drainage. No fluctuance. Skin: General: Skin is warm and dry. Neurological: Mental Status: He is alert. Assessment and Plan ASSESSMENT/PLAN: 1. Ingrown toenail with infection - ICD9: 703.0, ICD10: L60.0 -Rx for Keflex. -Recommend warm soaks 4 times daily. -Follow-up with podiatry on Friday as scheduled. -Advised to go to ER with any streaking redness, swelling or redness exten (more content not included)... [facility] History of Present illness Narrative 12-21-2023 Nasim Anthony PA - 12/21/2023 9:58 AM EST Note Date & Type Note Facility 12-21-2023 History of Presen t illness Narrative This note was created using NoteWriter. Subjective Reny Beverly . is a 48 year old male. HPI 48-year-old male presents for left great toe redness, swelling and pain. Patient states that he has an ingrown toenail. He got it clipped by podiatry and is scheduled Friday to have the toenail removed. He states that he went bowling on Friday and thinks that his shoe irritated his toe. He states that Friday his toe was swollen and red. It is tender to touch around the toenail. He has not noticed any drainage. He has been doing warm soaks. No fevers. He is a type II diabetic. States his sugars have been good. PAST MEDICAL HISTORY Diagnosis Date Anticoagulant long-term use indication: stroke prevention atrial fibrillation At risk for stroke [id number] = 2 (HTN, DM) Congenital hypertrophic pyloric [...] Laterality Date ECHOCARDIOGRAM 03/08/2022 see scanned documents; [facility] STRESS TEST EXERCISE-NUCLEAR 03/19/2022 see scanned documents; [facility] TONSILLECTOMY & ADENOIDECTOMY <AGE 13 1979 UNLISTED STOMACH SURGERY 1975 probably for pyloric stenosis ALLERGIES Patient has no known allergies. MEDICATIONS metoprolol succinate ER (TOPROL XL) 50 mg [...] 0.75 mg subcutaneously one time a week. cephALEXin (KEFLEX) 500 mg capsule Take 1 capsule by mouth four times daily for 5 days. FAMILY HISTORY Problem Relation Age of Onset Arthritis Mother Heart disease Mother Coronary Artery Disease Mother had coronary stent(s) Coronary Artery Disease Father CAD, coronary stents, CABG Heart disease Father Hypertension Father Social History Tobacco Use Smoking status: Former Packs/day: 0.50 Years: 10.00 Additional pack years: 0.00 Total pack years: 5.00 Types: Cigarettes Start date: 2011 Quit date: 03/18/2022 Years since quittin.7 Smokeless tobacco: Never Substance Use Topics Alcohol use: Not Currently Comment: a few times a month.Previous heavy alcohol use. Drug use: Never Review of Systems Constitutional: Negative for chills and fever. HENT: Negative for congestion and sore throat. Respiratory: Negative for cough and shortness of breath. Gastrointestinal: Negative for diarrhea and vomiting. Skin: Positive for color change. Objective BP 122/72 Pulse 76 Temp 36.1 C (96.9 F) Resp 16 Wt 116.6 kg (257 lb) SpO2 97% BMI 35.84 kg/m Physical Exam Vitals and nursing note reviewed. Constitutional: General: He is not in acute distress. Appearance: Normal appearance. He is not toxic-appearing. Cardiovascular: Rate and Rhythm: Normal rate and regular rhythm. Pulmonary: Effort: Pulmonary effort is normal. Breath sounds: Normal breath sounds. Feet: Left foot: Skin integrity: Erythema present. Toenail Condition: Left toenails are ingrown. Comments: Left great toenail is ingrown medially and laterally. He has erythema and swelling surrounding the left great toenail. No lymphatic streaking. No drainage. No fluctuance. Skin: General: Skin is warm and dry. Neurological: Mental Status: He is alert. Assessment and Plan ASSESSMENT/PLAN: 1. Ingrown toenail with infection - ICD9: 703.0, ICD10: L60.0 -Rx for Keflex. -Recommend warm soaks 4 times daily. -Follow-up with podiatry on Friday as scheduled. -Advised to go to ER with any streaking redness, swelling or redness extending into the foot, fever. Diagnosis and treatment plan were discussed and questions were answered to the patient's satisfaction. Pt acknowledged understanding of concepts and follow up plan. Specific signs and symptoms that would indicate the need for higher level of care were discussed in detail warranting prompt ER evaluation. MIKE Bhatt documented in this encounter [facility] Progress note 10-31-2022 Note Date & Type Note Facility 10-31-2022 Note HNO ID: [id number] Author: Narciso Munoz MD Service: ? Author Type: Physician Type: Progress Notes Filed: 10/31/2022 6:50 PM Note Text: PRIMARY CARE PHYSICIAN: Can Monzon [address] [place] [address] REFERRING PHYSICIAN: Yared Whipple MD ([facility]) [address] [facility] [address] [facility] [phone] Patient Care Team: Can Monzon DO as PCP - General (Family Medicine) Yared Whipple as Specialty Tire Service Technician (Cardiology) Narciso Olivo V as Specialty Tire Service Technician (Internal Medicine) CHIEF COMPLAINT: Evaluation for arrhythmia HISTORY OF PRESENT ILLNESS: Mr. Beverly is a 47 year old male who presents today for evaluation of symptomatic arrhythmia, including atrial fibrillation. He has a history of hypertension, hyperlipidemia, type 2 diabetes mellitus. He also has sleep apnea, has been treated with BiPAP since about June 2022. He states in March 2022 he woke up experiencing palpitations and skipping beats. He presented to [facility], was found to be in atrial [...] prevention atrial fibrillation At risk for stroke [id number] = 2 (HTN, DM) Congenital hypertrophic pyloric [...] Laterality Date ECHOCARDIOGRAM 03/08/2022 see scanned documents; [facility] STRESS TEST EXERCISE-NUCLEAR 03/19/2022 see scanned documents; [facility] TONSILLECTOMY AND ADENOIDECTOMY UNLISTED STOMACH SURGERY [...] daily. metFORMIN (GLU (more content not included)... [facility] History of Present illness Narrative 10-31-2022 Narciso Munoz MD - 10/31/2022 2:20 PM EST Note Date & Type Note Facility 10-31-2022 History of Presen t illness Narrative PRIMARY CARE PHYSICIAN: Can Monzon [address] [place] [address] REFERRING PHYSICIAN: Yared Whipple MD ([facility]) [address] [facility] [address] [facility] [phone] Patient Care Team: Can Monzon DO as PCP - General (Family Medicine) Yared Whipple as Specialty Tire Service Technician (Cardiology) Narciso Olivo V as Specialty Tire Service Technician (Internal Medicine) CHIEF COMPLAINT: Evaluation for arrhythmia HISTORY OF PRESENT ILLNESS: Mr. Beverly is a 47 year old male who presents today for evaluation of symptomatic arrhythmia, including atrial fibrillation. He has a history of hypertension, hyperlipidemia, type 2 diabetes mellitus. He also has sleep apnea, has been treated with BiPAP since about June 2022. He states in March 2022 he woke up experiencing palpitations and skipping beats. He presented to [facility], was found to be in atrial [...] prevention atrial fibrillation At risk for stroke [id number] = 2 (HTN, DM) Congenital hypertrophic pyloric [...] Laterality Date ECHOCARDIOGRAM 03/08/2022 see scanned documents; [facility] STRESS TEST EXERCISE-NUCLEAR 03/19/2022 see scanned documents; [facility] TONSILLECTOMY & ADENOIDECTOMY <AGE 13 1979 [...] Sinus rhythm 65 bpm; normal conduction intervals (NM 180 ms, QRS 92 ms); QTc 405 [...] atrial fibrillation; I did discuss with Mr. Beverly that the decision regarding oral anticoagulation therapy [...] to recurrence of atrial arrhythmias IMPRESSION: Mr. Beverly has been experiencing arrhythmia as outlined above. [...] I had a detailed discussion with Mr. Beverly regarding my evaluation and recommendations. After our discussion, Mr. Beverly expressed his understanding and I answered all his questions to his apparent satisfaction. PLAN AND RECOMMENDATIONS: Continue with current plan of care from EP standpoint. He will follow up with his [facility] team, and I am happy to see him back in the future if the need arises. Narciso Munoz MD 10/31/2022 Medical Decision Making: Problems: Moderate: New problem with uncertain prognosis Data: Unique source(s) for external note(s) reviewed: 3+ Unique test result(s) reviewed: 3+ Unique test(s) ordered: 1 Risk: Moderate: Moderate risk from testing/treatment, Drug management and Decision on minor surgery w/ risk factors Medical Decision Making Level: 4 - Moderate documented in this encounter [facility] Evaluation note Note Date & Type Note Facility documented in this encounter [facility] Evaluation note Note Date & Type Note Facility documented in this encounter [facility] Summary Purpose Family History No Family History Records FoundNo Family History Records Found Advance Directives No Advanced Directives Records FoundNo Advanced Directives Records Found Additional Source Comments Source Comments (unrecognize d section and content) In the event this informatio n is protected by the Federal Confidentiality of Alcohol and Drug Abuse Patient Records regulations: The Federal rules restrict any use of the information to criminally investigate or prosecute any alcohol or drug abuse patient.[facility] the event this information is protected by the Federal Confidentiality of Alcohol and Drug Abuse Patient Records regulations: The Federal rules restrict any use of the information to criminally investigate or prosecute any alcohol or drug abuse patient.[facility] the event this information is protected by the Federal Confidentiality of Alcohol and Drug Abuse Patient Records regulations: The Federal rules restrict any use of the information to criminally investigate or prosecute any alcohol or drug abuse patient.[facility] (unrecognized sect ion and content) No Status Records FoundNo Status Records Found INFORMATION SOURCE (unrecogn ized section and content) DATE CREATED AUTHOR AUTHOR'S ORGANIZ ATION 12/22/2023 [facility] Reason for Visit (unrecogniz ed section and content) Reason Comments Toe Pain (Big) left foot redness an d pain x 3 days, has appt for ingrown toenail to get removed on tues Care Teams (unrecognized sec tion and content) Jai Alai Player Relationship Specialty Start Date End Date Merrick Torres MD [address] [place], [place] [id number] PCP - General Internal Medicine 12/21/23 Yared Whipple MD [address] [place], [place] [id number] [employer] Technician Cardiology 10/30/22 Narciso Olivo [address] [place] [address] [employer]ty T[employer] Service Technician Internal Medicine 10/30/22 FOR RECORDS PERTAINING TO PATIENTS WHO ARE [...] BE BASED ON THE PRIMARY CLINICAL RECORDS. [employer] [facility]. provides no warranty or guarantee of the accuracy or completeness of information in this document.
== END | disposition home or self-care (01) ==
LOC: BIMLAB 10:51
PROVIDERS: PCP Internal Medicine; Visit Provider Internal Medicine
DX: N52.9 Male erectile dysfunction, unspecified (principal)
CPT/HCPCS: 36415; 84153; 84443; G0103

== ENCOUNTER → 2025-03-16 02:54 | Outpatient (REF) | payer SELFPAY | END | disposition home or self-care (01) | LOC: EDREF 02:54 | PROVIDERS: PCP Internal Medicine | DX: Z00.00 Encounter for general adult medical examination without abnormal findings (principal) ==